=== PATIENT | female | born 1935 | race Caucasian/White ===

== ENCOUNTER 2016-06-11 16:45 | Emergency (ER) | payer MEDICARE, OTHER ==
[~2016-06-11 16:45] MED LIST: ALEN70TA39 PO; ASPI81TA85 PO; CALC1TAB9 PO; CITRTAB18 PO; HYDR1TAB97 PO; HYDR200T3 PO; LEVO25TA5 PO; MULT1TAB8 PO; [UNRECOGNIZED DRUG - CODE] OU
--- NOTE | 2016-06-11 18:49 | EDDOCDS ---
Physician Documentation [facility] Name: Chandrika Green Age: 80 yrs Sex: Female : 1935 Arrival Date: 06/11/2016 Time: 16:45 Bed TR7 Private MD: Lizzy Dodson Disposition: 06/11/16 18:36 Discharged to Home/Self Care. Impression: Scabies. - Condition is Stable. - Discharge Instructions: Scabies. - Prescriptions for Elimite 5 % Topical Cream - apply 1 application by TOPICAL route one time Wash after 12 hours.; 60 gram. Hydroxyzine HCl 25 mg Oral Tablet - take 1 tablet by ORAL route every 6 hours As needed; 30 tablet. - Medication Reconciliation, Local Pharmacy Hours form. - Follow up: Lizzy Dodson; When: 2 - 3 days; Reason: Recheck today's complaints, Continuance of care. - Problem is new. - Symptoms have improved. Historical: - Allergies: Synthroid (itching); - Home Meds: 1. hydrocortisone 1 % Topical lotn 2. hydroxyzine HCl 10 mg Oral tab four times a day As needed for itching 3. levothyroxine 25 mcg Oral tab 1 tab once daily 4. loratadine 10 mg Oral tab 1 tab once daily 5. Plaquenil 200 mg Oral tab 1 tab once daily - PMHx: Hypercholesterolemia; Hypothyroidism; Lupus; - PSHx: Cholecystectomy; - Social history: Smoking status: Patient/guardian denies using No barriers to communication noted, The patient speaks fluent Citizen Of [place]. - Family history: Not pertinent. - : The pt / caregiver states he / she is not on anticoagulants. Home medication list is obtained from the patient. - Exposure Risk Screening:: None identified. Vital Signs: 06/11 16:48 BP 142 / 57; Pulse 99; Resp 18 S; Temp 98.4(O); Pulse Ox 98% on R/A; Weight 70.76 kg / dd6 156 lbs (R); Height 5 ft. 0 in. (152.40 cm) (R); Pain 0/10; 16:48 Body Mass Index 30.47 (70.76 kg, 152.40 cm) dd6 Signatures: Mirian Roach RN RN Alice Vitale RN RN dls Kwaczala, Christopher, RPA-C RPA-Cck7 MAMTA
--- NOTE | 2016-06-11 18:49 | EDDOCDS ---
Nurse's Notes [facility] Name: Chandrika Green Age: 80 yrs Sex: Female : 1935 Arrival Date: 06/11/2016 Time: 16:45 Bed TR7 Private MD: Lizzy Dodson Diagnosis: Scabies Presentation: 06/11 16:54 Presenting complaint: Patient states: Pt presents for rash on entire body seen last dls month for the same PMD not open today. Onset: The symptoms/episode began/occurred 3 month(s) ago. This patient has not experienced a previous allergic reaction. Anaphylaxis evaluation, the patient reports or I have noted the following symptoms which indicate a significant risk of anaphylaxis: abdominal pain. Adult Sepsis Screening: The patient does not have new or worsening altered mentation. Patient's respiratory rate is less than 22. Systolic blood pressure is greater than 100. Patient has a qSOFA score of 0- Negative Sepsis Screen. Suicide/Homicide risk assessment- the patient denies having any suicidal and/or homicidal ideations and does not present with any other emotional, behavioral or mental health complaints. Status: Patient is not a readers' advisory service librarian or dependent. Transition of care: patient was not received from another setting of care. 16:54 Acuity: COLIN Level 4 dls 16:54 Method Of Arrival: Walkin/Carried/Asstd dls Triage Assessment: 16:57 General: Appears uncomfortable, well developed, Behavior is cooperative. Pain: Denies dls pain. Respiratory: No deficits noted. Historical: - Allergies: Synthroid (itching); - Home Meds: 1. hydrocortisone 1 % Topical lotn 2. hydroxyzine HCl 10 mg Oral tab four times a day As needed for itching 3. levothyroxine 25 mcg Oral tab 1 tab once daily 4. loratadine 10 mg Oral tab 1 tab once daily 5. Plaquenil 200 mg Oral tab 1 tab once daily - PMHx: Hypercholesterolemia; Hypothyroidism; Lupus; - PSHx: Cholecystectomy; - Social history: Smoking status: Patient/guardian denies using No barriers to communication noted, The patient speaks fluent Chinese. - Family history: Not pertinent. - : The pt / caregiver states he / she is not on anticoagulants. Home medication list is obtained from the patient. - Exposure Risk Screening:: None identified. Screenin:47 Screening information is obtained from prior medical records. Fall risk: No risks kcs identified. Assistance ADL's: requires no assistance with activities of daily living. Abuse/DV Screen: The patient / caregiver reports he/she is: not in a situation that causes fear, pain or injury. Nutritional screening: No deficits noted. Advance Directives: Currently, there is no health care proxy. There is no living will. home support is adequate. Assessment: 18:45 General: Appears comfortable, well developed, well nourished, well groomed, Behavior is kcs cooperative, pleasant. Pain: Denies pain. Awake, alert, oriented. Skin warm and dry. Moves all extremities. Respirations unlabored. No apparent distress. The patient / caregiver is instructed regarding the plan of care and ED course. Physical assessment to be completed by PA/EDMD. 18:47 Respiratory: Airway is patent Respiratory effort is even, unlabored, Respiratory kcs pattern is regular, symmetrical. Vital Signs: 16:48 BP 142 / 57; Pulse 99; Resp 18 S; Temp 98.4(O); Pulse Ox 98% on R/A; Weight 70.76 kg dd6 (R); Height 5 ft. 0 in. (152.40 cm) (R); Pain 0/10; 16:48 Body Mass Index 30.47 (70.76 kg, 152.40 cm) dd6 Vitals: 16:48 Log In Time: June 11, 2016 at 16:48. dd6 ED Course: 16:47 Patient visited by Nilson Silveira PCA. dd6 16:47 Patient moved to Waiting dd6 16:48 Lizzy Dodson is Private Physician. dd6 16:49 Patient visited by Nilson Silveira PCA. dd6 16:49 Patient moved to Pre RCE dd6 16:56 Triage Initiated dls 17:43 Patient moved to Triage 2 ms18 18:18 [facility] ck[facility] 18:18 Lorena Castano MD is Attending Physician. ck7 18:18 Patient visited by Deandre Puga RPA-C. ck7 18:35 Lizzy Dodson is Referral Physician. ck7 18:44 Patient moved to TR7 ct3 18:45 Patient has correct armband on for positive identification. kcs 18:47 No IV's were initiated during this patient's visit. No procedures done that require kcs assistance. Order Results: There are currently no results for this order. Outcome: 18:36 Discharge ordered by Provider. ck7 18:45 The following High Risk Discharge criteria are identified: None. Discharged to home kcs ambulatory. Condition: stable. Discharge instructions given to patient, Instructed on discharge instructions, follow up and referral plans. medication usage, no driving heavy equipment, no drinking with medication, Demonstrated understanding of instructions, medications, Pt was receptive of discharge instructions/ teaching. No special radiology studies were completed. 18:47 Discharge Assessment: Patient awake, alert and oriented x 3. No cognitive and/or kcs functional deficits noted. Patient verbalized understanding of disposition instructions. Patient awake and alert. patient administered narcotics - no. Property sent home with patient. 18:48 Patient left the ED. kcs Signatures: Mirian Roach, RN RN Alice Vitale RN RN Nilson Chavez, SOCIAL ORGANIZATION PROFESSOR SOCIAL ORGANIZATION PROFESSOR dd6 Leticia Means, SOCIAL ORGANIZATION PROFESSOR SOCIAL ORGANIZATION PROFESSOR ct3 Deandre Puga, RPA-C RPA-Cck7 Miya Montelongo RN RN ms18 MTDD
--- NOTE | 2016-06-13 20:34 | EDDOCDS ---
Physician Documentation [facility] Name: Chandrika Green Age: 80 yrs Sex: Female : 1935 Arrival Date: 06/11/2016 Time: 16:45 Bed TR7 Private MD: Lizzy Dodson Disposition: 06/11/16 18:36 Discharged to Home/Self Care. Impression: Scabies. - Condition is Stable. - Discharge Instructions: Scabies. - Prescriptions for Elimite 5 % Topical Cream - apply 1 application by TOPICAL route one time Wash after 12 hours.; 60 gram. Hydroxyzine HCl 25 mg Oral Tablet - take 1 tablet by ORAL route every 6 hours As needed; 30 tablet. - Medication Reconciliation, Local Pharmacy Hours form. - Follow up: Lizzy Dodson; When: 2 - 3 days; Reason: Recheck today's complaints, Continuance of care. - Problem is new. - Symptoms have improved. Historical: - Allergies: Synthroid (itching); - Home Meds: 1. hydrocortisone 1 % Topical lotn 2. hydroxyzine HCl 10 mg Oral tab four times a day As needed for itching 3. levothyroxine 25 mcg Oral tab 1 tab once daily 4. loratadine 10 mg Oral tab 1 tab once daily 5. Plaquenil 200 mg Oral tab 1 tab once daily - PMHx: Hypercholesterolemia; Hypothyroidism; Lupus; - PSHx: Cholecystectomy; - Social history: Smoking status: Patient/guardian denies using No barriers to communication noted, The patient speaks fluent Macanese. - Family history: Not pertinent. - : The pt / caregiver states he / she is not on anticoagulants. Home medication list is obtained from the patient. - Exposure Risk Screening:: None identified. Vital Signs: 06/11 16:48 BP 142 / 57; Pulse 99; Resp 18 S; Temp 98.4(O); Pulse Ox 98% on R/A; Weight 70.76 kg / dd6 156 lbs (R); Height 5 ft. 0 in. (152.40 cm) (R); Pain 0/10; 16:48 Body Mass Index 30.47 (70.76 kg, 152.40 cm) dd6 MDM: 20:25 [facility] Payment Agreement was scanned into [employer] and attached to record. b 20:25 Financial registration complete. gjb 06/12 05:58 T-Sheet-- Draft Copy was scanned into [employer] and attached to record. timbo Signatures: Mirian Roach RN RN kcs Scott, Debra, RN RN dls Kwaczala, Christopher, RPA-C RPA-Cck7 Arel, [place] Wallace The chart was reviewed and I authenticate all verbal orders and agree with the evaluation and treatment provided.Attachments: 06/11 20:25 [facility] Payment Agreement gjb 06/12 05:58 T-Sheet-- Draft Copy [email or web address] Chart Complete MTDD
--- NOTE | 2016-06-13 20:34 | EDDOCDS ---
Nurse's Notes [facility] Name: Chandrika Green Age: 80 yrs Sex: Female : 1935 Arrival Date: 06/11/2016 Time: 16:45 Bed TR7 Private MD: Lizzy Dodson Diagnosis: Scabies Presentation: 06/11 16:54 Presenting complaint: Patient states: Pt presents for rash on entire body seen last dls month for the same PMD not open today. Onset: The symptoms/episode began/occurred 3 month(s) ago. This patient has not experienced a previous allergic reaction. Anaphylaxis evaluation, the patient reports or I have noted the following symptoms which indicate a significant risk of anaphylaxis: abdominal pain. Adult Sepsis Screening: The patient does not have new or worsening altered mentation. Patient's respiratory rate is less than 22. Systolic blood pressure is greater than 100. Patient has a qSOFA score of 0- Negative Sepsis Screen. Suicide/Homicide risk assessment- the patient denies having any suicidal and/or homicidal ideations and does not present with any other emotional, behavioral or mental health complaints. Status: Patient is not a hvac/r service technician or dependent. Transition of care: patient was not received from another setting of care. 16:54 Acuity: COLIN Level 4 dls 16:54 Method Of Arrival: Walkin/Carried/Asstd dls Triage Assessment: 16:57 General: Appears uncomfortable, well developed, Behavior is cooperative. Pain: Denies dls pain. Respiratory: No deficits noted. Historical: - Allergies: Synthroid (itching); - Home Meds: 1. hydrocortisone 1 % Topical lotn 2. hydroxyzine HCl 10 mg Oral tab four times a day As needed for itching 3. levothyroxine 25 mcg Oral tab 1 tab once daily 4. loratadine 10 mg Oral tab 1 tab once daily 5. Plaquenil 200 mg Oral tab 1 tab once daily - PMHx: Hypercholesterolemia; Hypothyroidism; Lupus; - PSHx: Cholecystectomy; - Social history: Smoking status: Patient/guardian denies using No barriers to communication noted, The patient speaks fluent Korean. - Family history: Not pertinent. - : The pt / caregiver states he / she is not on anticoagulants. Home medication list is obtained from the patient. - Exposure Risk Screening:: None identified. Screenin:47 Screening information is obtained from prior medical records. Fall risk: No risks kcs identified. Assistance ADL's: requires no assistance with activities of daily living. Abuse/DV Screen: The patient / caregiver reports he/she is: not in a situation that causes fear, pain or injury. Nutritional screening: No deficits noted. Advance Directives: Currently, there is no health care proxy. There is no living will. home support is adequate. Assessment: 18:45 General: Appears comfortable, well developed, well nourished, well groomed, Behavior is kcs cooperative, pleasant. Pain: Denies pain. Awake, alert, oriented. Skin warm and dry. Moves all extremities. Respirations unlabored. No apparent distress. The patient / caregiver is instructed regarding the plan of care and ED course. Physical assessment to be completed by PA/EDMD. 18:47 Respiratory: Airway is patent Respiratory effort is even, unlabored, Respiratory kcs pattern is regular, symmetrical. Vital Signs: 16:48 BP 142 / 57; Pulse 99; Resp 18 S; Temp 98.4(O); Pulse Ox 98% on R/A; Weight 70.76 kg dd6 (R); Height 5 ft. 0 in. (152.40 cm) (R); Pain 0/10; 16:48 Body Mass Index 30.47 (70.76 kg, 152.40 cm) dd6 Vitals: 16:48 Log In Time: June 11, 2016 at 16:48. dd6 ED Course: 16:47 Patient visited by Nilson Silveira PCA. dd6 16:47 Patient moved to Waiting dd6 16:48 Lizzy Dodson is Private Physician. dd6 16:49 Patient visited by Nilson Silveira PCA. dd6 16:49 Patient moved to Pre RCE dd6 16:56 Triage Initiated dls 17:43 Patient moved to Triage 2 ms18 18:18 [facility] ck[facility] 18:18 Lorena Castano MD is Attending Physician. ck7 18:18 Patient visited by Deandre Puga RPA-C. ck7 18:35 Lizzy Dodson is Referral Physician. ck7 18:44 Patient moved to TR7 ct3 18:45 Patient has correct armband on for positive identification. kcs 18:47 No IV's were initiated during this patient's visit. No procedures done that require kcs assistance. 20:25 [facility] Payment Agreement was scanned into [employer] and attached to record. judit 06/12 05:58 T-Sheet-- Draft Copy was scanned into [employer] and attached to record. timbo Order Results: There are currently no results for this order. Outcome: 06/11 18:36 Discharge ordered by Provider. ck7 18:45 The following High Risk Discharge criteria are identified: None. Discharged to home kcs ambulatory. Condition: stable. Discharge instructions given to patient, Instructed on discharge instructions, follow up and referral plans. medication usage, no driving heavy equipment, no drinking with medication, Demonstrated understanding of instructions, medications, Pt was receptive of discharge instructions/ teaching. No special radiology studies were completed. 18:47 Discharge Assessment: Patient awake, alert and oriented x 3. No cognitive and/or kcs functional deficits noted. Patient verbalized understanding of disposition instructions. Patient awake and alert. patient administered narcotics - no. Property sent home with patient. 18:48 Patient left the ED. kcs Signatures: Mirian Roach, RN RN Alice Vitale RN RN Nilson Chavez, WOOD BOX MAKER WOOD BOX MAKER dd6 Leticia Means, WOOD BOX MAKER WOOD BOX MAKER ct3 Deandre Puga, RPA-C RPA-Cck7 Miya Montelongo,GABRIEL RN ms18 Zafarl, Patricia Eddy, [place] Chart Complete MTDD
--- NOTE | 2016-06-13 20:34 | EDDOCDS ---
Physician Documentation [facility] Name: Chandrika Green Age: 80 yrs Sex: Female : 1935 Arrival Date: 06/11/2016 Time: 16:45 Bed TR7 Private MD: Lizzy Dodson Disposition: 06/11/16 18:36 Discharged to Home/Self Care. Impression: Scabies. - Condition is Stable. - Discharge Instructions: Scabies. - Prescriptions for Elimite 5 % Topical Cream - apply 1 application by TOPICAL route one time Wash after 12 hours.; 60 gram. Hydroxyzine HCl 25 mg Oral Tablet - take 1 tablet by ORAL route every 6 hours As needed; 30 tablet. - Medication Reconciliation, Local Pharmacy Hours form. - Follow up: Lizzy Dodson; When: 2 - 3 days; Reason: Recheck today's complaints, Continuance of care. - Problem is new. - Symptoms have improved. Historical: - Allergies: Synthroid (itching); - Home Meds: 1. hydrocortisone 1 % Topical lotn 2. hydroxyzine HCl 10 mg Oral tab four times a day As needed for itching 3. levothyroxine 25 mcg Oral tab 1 tab once daily 4. loratadine 10 mg Oral tab 1 tab once daily 5. Plaquenil 200 mg Oral tab 1 tab once daily - PMHx: Hypercholesterolemia; Hypothyroidism; Lupus; - PSHx: Cholecystectomy; - Social history: Smoking status: Patient/guardian denies using No barriers to communication noted, The patient speaks fluent Taiwanese. - Family history: Not pertinent. - : The pt / caregiver states he / she is not on anticoagulants. Home medication list is obtained from the patient. - Exposure Risk Screening:: None identified. Vital Signs: 06/11 16:48 BP 142 / 57; Pulse 99; Resp 18 S; Temp 98.4(O); Pulse Ox 98% on R/A; Weight 70.76 kg / dd6 156 lbs (R); Height 5 ft. 0 in. (152.40 cm) (R); Pain 0/10; 16:48 Body Mass Index 30.47 (70.76 kg, 152.40 cm) dd6 MDM: 20:25 [facility] Payment Agreement was scanned into [employer] and attached to record. b 20:25 Financial registration complete. gjb 06/12 05:58 T-Sheet-- Draft Copy was scanned into [employer] and attached to record. timbo Signatures: Mirian Roach RN RN kcs Scott, Debra, RN RN dls Kwaczala, Christopher, RPA-C RPA-Cck7 Arel, [place] Wallace The chart was reviewed and I authenticate all verbal orders and agree with the evaluation and treatment provided.Attachments: 06/11 20:25 [facility] [place] [facility] Payment Agreement gjb 06/12 05:58 T-Sheet-- Draft Copy [email or web address] Chart Complete MTDD
== END 2016-06-11 18:48 | disposition home or self-care (01) ==
LOC: M ED 16:45
DX: B86 Scabies (principal); M32.10 Systemic lupus erythematosus, organ or system involvement unspecified; E03.9 Hypothyroidism, unspecified; E78.00 Pure hypercholesterolemia, unspecified; Z90.49 Acquired absence of other specified parts of digestive tract; Z79.899 Other long term (current) drug therapy; Z88.8 Allergy status to other drugs, medicaments and biological substances

== ENCOUNTER → 2016-06-28 | Outpatient (CLI) | payer MEDICARE, OTHER ==
[~2016-06-28] MED LIST changes: +HYDR-3713 PO; -HYDR1TAB97 PO
[2016-06-28 11:33] LABS: BASO % 0.7 % (0.0-1.0); EOS # 0.4 K/mm3 (0.0-0.50); EOS % 6.2 % (0.0-3.0); LARGE UNSTAINED CELL # 0.1 K/mm3 (0.0-0.4); LARGE UNSTAINED CELL % 1.9 % (0.0-4.0); LYMPH # 1.3 K/mm3 (1.5-4.5); LYMPH % 18.6 % (24.0-44.0); MEAN CORPUSCULAR HEMOGLOBIN 29.6 pg (27.0-33.0); MEAN CORPUSCULAR HGB CONC 31.2 g/dl (32.0-36.5); MEAN CORPUSCULAR VOLUME 94.8 fl (80.0-96.0); MONO # 0.5 K/mm3 (0.0-0.8); MONO % 7.7 % (0.0-5.0); NEUTROPHILS # 4.1 K/mm3 (1.8-7.7); NEUTROPHILS % 64.9 % (36.0-66.0); PLATELET COUNT, AUTOMATED 234 k/mm3 (150-450); RED CELL DISTRIBUTION WIDTH 14.5 % (11.5-14.5); WHITE BLOOD COUNT 6.3 K/mm3 (4.0-10.0)
[2016-06-28 11:38] LABS: ERYTHROCYTE SEDIMENTATION RATE 39 mm/hr (0-30)
[2016-06-28 12:14] LABS: ALBUMIN 3.2 GM/DL (3.2-5.2); ALBUMIN/GLOBULIN RATIO 0.91 (1.00-1.93); ALKALINE PHOSPHATASE 82 U/L (45-117); ALT/SGPT 36 U/L (12-78); ANION GAP 11 MEQ/L (8-16); AST/SGOT 29 U/L (15-37); BILIRUBIN,TOTAL 0.3 MG/DL (0.2-1.0); BLOOD UREA NITROGEN 18 MG/DL (7-18); CALCIUM LEVEL 8.8 MG/DL (8.8-10.2); CARBON DIOXIDE LEVEL 25 MEQ/L (21-32); CHLORIDE LEVEL 108 MEQ/L (98-107); COMPLEMENT C3 142 MG/DL (90-180); COMPLEMENT C4 21.5 MG/DL (10-40); CREATININE FOR GFR 0.77 MG/DL (0.55-1.02); GAMMA GLUTAMYLTRANSPEPTIDASE 46 U/L (5-55); GLOMERULAR FILTRATION RATE > 60.0 (>39); GLUCOSE, FASTING 79 MG/DL (83-110); POTASSIUM SERUM 4.4 MEQ/L (3.5-5.1); SODIUM LEVEL 144 MEQ/L (136-145); TOTAL PROTEIN 6.7 GM/DL (6.4-8.2)
== END ==
LOC: M LAB 10:24
PROVIDERS: ATTEND Internal Medicine Rheumatology
DX: M32.19 Other organ or system involvement in systemic lupus erythematosus (principal); Z79.899 Other long term (current) drug therapy

== ENCOUNTER → 2016-07-24 | Outpatient (REF) | payer MEDICARE, OTHER | LOC: M LAB REF 13:08 | PROVIDERS: ATTEND Internal Medicine | DX: R41.3 Other amnesia (principal) ==

== ENCOUNTER 2016-08-22 11:31 | Emergency (ER) | payer MEDICARE, OTHER ==
[~2016-08-22] VITALS: Ht 149.9 cm; Wt 72.1 kg
[2016-08-22 11:41] VITALS: BP 152/73
[2016-08-22] MEDS ORDERED: KEFL500C7 PO (12:05)
== END 2016-08-22 12:15 | disposition home or self-care (01) ==
LOC: M ED 12:14
DX: R21 Rash and other nonspecific skin eruption (principal); E78.00 Pure hypercholesterolemia, unspecified; E03.9 Hypothyroidism, unspecified; M19.90 Unspecified osteoarthritis, unspecified site; Z79.899 Other long term (current) drug therapy; Z87.891 Personal history of nicotine dependence

== ENCOUNTER → 2016-10-19 | Outpatient (CLI) | payer MEDICARE, OTHER ==
[~2016-10-19] MED LIST changes: +KEFL500C7 PO
== END ==
LOC: M SMT 12:08
PROVIDERS: ATTEND Allergy & Immunology Allergy
DX: L20.89 Other atopic dermatitis (principal)

== ENCOUNTER → 2016-10-31 | Outpatient (REF) | payer MEDICARE, OTHER | LOC: M SFHCPLAZ 16:32 | PROVIDERS: ATTEND Family Medicine | DX: K13.0 Diseases of lips (principal); E04.9 Nontoxic goiter, unspecified; R21 Rash and other nonspecific skin eruption ==

== ENCOUNTER → 2016-11-01 | Outpatient (REF) | payer MEDICARE, OTHER ==
[2016-11-01 14:48] LABS: FOLATE 7.1 NG/ML
[2016-11-01 15:11] LABS: FREE T4 1.14 NG/DL (0.76-1.46)
== END ==
LOC: M SFHCPLAZ 11:57
PROVIDERS: ATTEND Family Medicine
DX: K13.0 Diseases of lips (principal); E04.9 Nontoxic goiter, unspecified; R21 Rash and other nonspecific skin eruption

== ENCOUNTER → 2016-11-07 | Outpatient (REF) | payer MEDICARE, OTHER ==
[2016-11-07 12:14] LABS: BASO % 0.7 % (0.0-1.0); EOS # 0.6 K/mm3 (0.0-0.50); EOS % 14.6 % (0.0-3.0); LARGE UNSTAINED CELL # 0.2 K/mm3 (0.0-0.4); LYMPH # 0.9 K/mm3 (1.5-4.5); LYMPH % 22.2 % (24.0-44.0); MEAN CORPUSCULAR HEMOGLOBIN 30.5 pg (27.0-33.0); MEAN CORPUSCULAR HGB CONC 32.5 g/dl (32.0-36.5); MEAN CORPUSCULAR VOLUME 93.8 fl (80.0-96.0); MONO # 0.4 K/mm3 (0.0-0.8); MONO % 10.3 % (0.0-5.0); NEUTROPHILS % 48.2 % (36.0-66.0); PLATELET COUNT, AUTOMATED 252 k/mm3 (150-450); WHITE BLOOD COUNT 4.2 K/mm3 (4.0-10.0)
[2016-11-07 13:05] LABS: ERYTHROCYTE SEDIMENTATION RATE 52 mm/hr (0-30)
[2016-11-07 13:08] LABS: THYROID PEROXIDASE ANTIBODY < 28.0 U/ML (<60.0)
== END ==
LOC: M SFHCPLAZ 09:03
PROVIDERS: ATTEND Family Medicine
DX: L20.9 Atopic dermatitis, unspecified (principal); M32.9 Systemic lupus erythematosus, unspecified; E04.9 Nontoxic goiter, unspecified
CPT/HCPCS: 36415; 84252; 84443; 85025; 85652; 86140; 86376; 86800; G0463

== ENCOUNTER → 2016-12-26 | Outpatient (CLI) | payer MEDICARE, OTHER ==
[~2016-12-26] MED LIST changes: +KEFL500C17 PO; -KEFL500C7 PO
--- NOTE | 2016-12-27 14:28 | REP ---
Thyroid uptake and scintigraphy: History: Goiter. Technique: 352 microcuries of I-123 sodium iodide is ingested and 2 and 24 uptake values are acquired. Functional thyroid images are acquired as well. Findings: The thyroid uptake values are low. At 2 hours the patient's uptake value is 4.4% (6-12%). At 24 hours, the patient's as thyroid uptake value is 14.1% (25-35%). Functional images show no cold or warm lesion. Symmetric uptake is seen. A thin pyramidal lobe appears to be present. Impression: Decreased uptake. No cold or warm lesion seen. Signed by Joe Domingo MD 12/27/2016 04:41 P
== END ==
LOC: M RAD 08:36
PROVIDERS: ATTEND Family Medicine
DX: E04.1 Nontoxic single thyroid nodule (principal)
CPT/HCPCS: 78012; A9516

== ENCOUNTER → 2017-01-14 | Outpatient (REF) | payer MEDICARE, OTHER ==
[2017-01-14 17:29] LABS: REASON FOR REVIEW COMPREHENSIVE REVIEW
[2017-01-14 17:56] LABS: MEAN CORPUSCULAR HEMOGLOBIN 30.4 pg (27.0-33.0); MEAN CORPUSCULAR HGB CONC 32.9 g/dl (32.0-36.5); MEAN CORPUSCULAR VOLUME 92.5 fl (80.0-96.0); RED CELL DISTRIBUTION WIDTH 13.4 % (11.5-14.5); RETIC HEMOGLOBIN CONTENT CHr 31.1 PG (24-36); RETICULOCYTE ABSOLUTE ADVIA212 51 x10(9)/L (17-77); WHITE BLOOD COUNT 3.2 K/mm3 (4.0-10.0)
[2017-01-14 18:20] LABS: ANION GAP 11 MEQ/L (8-16); BLOOD UREA NITROGEN 10 MG/DL (7-18); CALCIUM LEVEL 8.3 MG/DL (8.8-10.2); CARBON DIOXIDE LEVEL 23 MEQ/L (21-32); CHLORIDE LEVEL 106 MEQ/L (98-107); CREATININE FOR GFR 0.69 MG/DL (0.55-1.02); FERRITIN 14 NG/ML (8-252); FREE T4 1.06 NG/DL (0.76-1.46); GLOMERULAR FILTRATION RATE > 60.0 (>32); GLUCOSE, FASTING 77 MG/DL (83-110); POTASSIUM SERUM 4.1 MEQ/L (3.5-5.1); SODIUM LEVEL 140 MEQ/L (136-145)
[2017-01-14 20:59] LABS: BASOPHILS 1 % (0-4); EOSINOPHILS 2 % (0-5)
== END ==
LOC: M SFHCPLAZ 14:04
PROVIDERS: ATTEND Family Medicine
DX: D64.9 Anemia, unspecified (principal); E03.9 Hypothyroidism, unspecified; Z87.39 Personal history of other diseases of the musculoskeletal system and connective tissue; L30.9 Dermatitis, unspecified; R79.89 Other specified abnormal findings of blood chemistry; Z79.899 Other long term (current) drug therapy
CPT/HCPCS: 80048; 82270; 82728; 84439; 84443; 84466; 85007; 85027; 85046; G0463

== ENCOUNTER → 2017-01-15 | Outpatient (REF) | payer MEDICARE, OTHER | LOC: M SFHCPLAZ 01-14 11:22 | PROVIDERS: ATTEND Family Medicine | DX: L30.9 Dermatitis, unspecified (principal); R79.89 Other specified abnormal findings of blood chemistry; D64.9 Anemia, unspecified; E03.9 Hypothyroidism, unspecified; Z87.39 Personal history of other diseases of the musculoskeletal system and connective tissue ==

== ENCOUNTER → 2017-03-08 | Outpatient (CLI) | payer MEDICARE, OTHER | LOC: M LAB 11:12 | PROVIDERS: ATTEND Nurse Practitioner Family | DX: R13.10 Dysphagia, unspecified (principal) ==

== ENCOUNTER → 2017-03-12 | Outpatient (CLI) | payer MEDICARE, OTHER ==
--- NOTE | 2017-03-12 11:01 | REP ---
Soft tissue neck three views: There is scoliosis of the cervical spine convex right of the upper thoracic spine convex left. The prevertebral soft tissues are unremarkable. The epiglottis is not hypertrophied. The sub glottic trachea is suboptimally demonstrated on the AP view. There is cervical spine degenerative disc disease at C 4-5 and C5-6. There are calcifications in the thyroid, cricoid cartilages. No definite radiopaque foreign bodies are identified. If foreign body is clinical concern consider CT or MRI followup. Signed by Gregory Schuster MD 03/12/2017 10:53 A
== END ==
LOC: M RAD 09:53
PROVIDERS: ATTEND Nurse Practitioner Family
DX: R13.10 Dysphagia, unspecified (principal)

== ENCOUNTER → 2017-06-05 | Outpatient (REF) | payer MEDICARE, OTHER ==
[2017-06-05 13:26] LABS: BASO % 0.4 % (0.0-1.0); EOS # 0.1 10^3/uL (0.0-0.50); IMMATURE GRANULOCYTE % 0.2 % (0-0); LYMPH # 0.9 10^3/uL (1.5-4.5); LYMPH % 18.3 % (24.0-44.0); MEAN CORPUSCULAR HEMOGLOBIN 30.3 pg (27.0-33.0); MEAN CORPUSCULAR HGB CONC 32.1 g/dl (32.0-36.5); MEAN CORPUSCULAR VOLUME 94.3 fl (80.0-96.0); MONO # 0.6 10^3/uL (0.0-0.8); MONO % 11.4 % (0.0-5.0); NEUTROPHILS # 3.3 10^3/uL (1.8-7.7); NEUTROPHILS % 68.7 % (36.0-66.0); PLATELET COUNT, AUTOMATED 254 10^3/uL (150-450); RED CELL DISTRIBUTION WIDTH 13.2 % (11.5-14.5); WHITE BLOOD COUNT 4.8 10^3/uL (4.0-10.0)
[2017-06-05 13:47] LABS: FREE T4 1.21 NG/DL (0.76-1.46)
== END ==
LOC: M SFHCPLAZ 10:34
DX: D70.9 Neutropenia, unspecified (principal); E03.9 Hypothyroidism, unspecified; F32.9 Major depressive disorder, single episode, unspecified
CPT/HCPCS: 84439

== ENCOUNTER 2019-01-11 20:37 | Emergency (ER) | payer MEDICARE, OTHER ==
[~2019-01-11] VITALS: Ht 162.6 cm; Wt 70.0 kg
[~2019-01-11 20:37] MED LIST changes: -ALEN70TA39 PO; +ALEN70TA74 PO
[2019-01-11] MEDS ORDERED: DONE10TA90 (20:45)
[2019-01-11] MEDS ORDERED: ACETAMINOPH W/CODEINE #3 TAB UD PO ONE (21:45)
[2019-01-11] MEDS ORDERED: TYLETAB14 PO (21:56)
[2019-01-11 22:03] VITALS: BP 156/70
--- NOTE | 2019-01-12 00:45 | REP ---
Clinical: Trauma. Fall. Technique: AP, lateral, bilateral oblique views of the left wrist. Findings: Comminuted intra-articular fracture involving the distal radial metaphysis and nondisplaced ulnar styloid fracture. Overlying soft tissue swelling. Chronic age-related changes to the wrist noted. Impression: Comminuted intra-articular fracture of the distal radius. Nondisplaced ulnar styloid fracture. Electronically Signed by Onel Mcgee MD 01/12/2019 12:37 A
== END 2019-01-11 22:05 | disposition home or self-care (01) ==
LOC: M ED 20:37
DX: S52.572A Other intraarticular fracture of lower end of left radius, initial encounter for closed fracture (principal); S52.615A Nondisplaced fracture of left ulna styloid process, initial encounter for closed fracture; W01.0XXA Fall on same level from slipping, tripping and stumbling without subsequent striking against object, initial encounter; Y92.018 Other place in single-family (private) house as the place of occurrence of the external cause; E78.5 Hyperlipidemia, unspecified; Z79.899 Other long term (current) drug therapy; Z87.891 Personal history of nicotine dependence

== ENCOUNTER 2019-03-01 15:35 | Inpatient (IN) | payer OTHER, MEDICARE ==
[~2019-03-01] VITALS: Ht 152.4 cm; Wt 64.0 kg
[~2019-03-01 15:35] MED LIST changes: +DONE10TA90 PO; +TYLETAB14 PO
[2019-03-01] MEDS ORDERED: TRAZ-252 PO (15:48)
[2019-03-01 18:13] LABS: HEMATOCRIT 36.2 % (36.0-47.0); HEMOGLOBIN 11.9 g/dl (12.0-15.5); MEAN CORPUSCULAR HEMOGLOBIN 31.2 pg (27.0-33.0); MEAN CORPUSCULAR HGB CONC 32.9 g/dl (32.0-36.5); PLATELET COUNT, AUTOMATED 216 10^3/uL (150-450); RED BLOOD COUNT 3.81 10^6/uL (4.00-5.40); WHITE BLOOD COUNT 6.8 10^3/uL (4.0-10.0)
[2019-03-01] MEDS ORDERED: VITA100018 PO (18:18)
[2019-03-01 18:33] LABS: BLOOD UREA NITROGEN 9 MG/DL (7-18); CALCIUM LEVEL 8.6 MG/DL (8.8-10.2); CARBON DIOXIDE LEVEL 25 MEQ/L (21-32); CHLORIDE LEVEL 109 MEQ/L (98-107); GLOMERULAR FILTRATION RATE > 60.0 (>32); GLUCOSE, FASTING 87 MG/DL (70-100); SODIUM LEVEL 142 MEQ/L (136-145)
--- NOTE | 2019-03-01 18:40 | ECGEPIP ---
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
[2019-03-01] MEDS ORDERED: ACETAMINOPHEN TAB 650MG DOSE (2X325MG) PO PRN (19:15)
[2019-03-01] MEDS ORDERED: HEPARIN SOD (PORCINE) 5000 UNITS/ML VIAL SC SCH (21:00)
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
[2019-03-01 22:10] VITALS: BP 173/86
[2019-03-01] MEDS: DOCUSATE SODIUM 100 MG CAP PO SCH (23:02)
[2019-03-01 23:48] VITALS: BP 138/69
[2019-03-02] MEDS: ACETAMINOPH W/CODEINE #3 TAB UD PO PRN ×2 (01:43→09:18)
[2019-03-02 04:46] LABS: APPEARANCE, URINE HAZY (CLEAR); BACTERIA, URINE AUTO 3+ (NEGATIVE); BILIRUBIN, URINE AUTO NEGATIVE (NEGATIVE); BLOOD, URINE BLOOD NEGATIVE (NEGATIVE); COLOR, URINE YELLOW (YELLOW); GLUCOSE, URINE (UA) AUTO NEGATIVE (NEGATIVE); KETONE, URINE AUTO NEGATIVE (NEGATIVE); LEUKOCYTE ESTERASE, URINE AUTO TRACE (NEGATIVE); MUCUS, URINE SMALL (NEGATIVE); NITRITE, URINE AUTO POSITIVE (NEGATIVE); PROTEIN, URINE AUTO NEGATIVE (NEGATIVE); RBC, URINE AUTO 1 /HPF (0-3); SPECIFIC GRAVITY URINE AUTO 1.017 (1.002-1.035); SQUAMOUS EPITHELIAL CELL UR AU 1 /HPF (0-6); TRANSITIONAL EPITHELIAL AUTO 1 /HPF; UROBILINOGEN, URINE AUTO 0.2 mg/dL (0.0-2.0); WBC, URINE AUTO 30 /HPF (0-3)
[2019-03-02 05:18] LABS: AMPHETAMINES LEVEL URINE NEGATIVE (NEGATIVE); BARBITURATES URINE NEGATIVE (NEGATIVE); BENZODIAZEPINES URINE NEGATIVE (NEGATIVE); CANNABINOIDS URINE NEGATIVE (NEGATIVE); COCAINE METABOLITE URINE NEGATIVE (NEGATIVE); METHADONE URINE NEGATIVE (NEGATIVE); OPIATES URINE POSITIVE (NEGATIVE); PHENCYCLIDINE URINE NEGATIVE (NEGATIVE)
[2019-03-02 06:00] VITALS: BP 144/68
[2019-03-02 06:17] LABS: HEMATOCRIT 35.8 % (36.0-47.0); HEMOGLOBIN 11.6 g/dl (12.0-15.5); MEAN CORPUSCULAR HEMOGLOBIN 30.9 pg (27.0-33.0); MEAN CORPUSCULAR HGB CONC 32.4 g/dl (32.0-36.5); MEAN CORPUSCULAR VOLUME 95.2 fl (80.0-96.0); PLATELET COUNT, AUTOMATED 188 10^3/uL (150-450); RED BLOOD COUNT 3.76 10^6/uL (4.00-5.40); WHITE BLOOD COUNT 4.5 10^3/uL (4.0-10.0)
[2019-03-02 06:37] LABS: BLOOD UREA NITROGEN 11 MG/DL (7-18); CALCIUM LEVEL 8.3 MG/DL (8.8-10.2); CARBON DIOXIDE LEVEL 26 MEQ/L (21-32); CHLORIDE LEVEL 110 MEQ/L (98-107); GLOMERULAR FILTRATION RATE > 60.0 (>32); GLUCOSE, FASTING 93 MG/DL (70-100); POTASSIUM SERUM 3.6 MEQ/L (3.5-5.1); SODIUM LEVEL 143 MEQ/L (136-145)
--- NOTE | 2019-03-02 07:37 | REP ---
CT BRAIN WITHOUT CONTRAST: CT brain performed without IV contrast. There is moderate atrophy. There is no midline shift or mass effect. There are mild periventricular small vessel ischemic changes in the white matter. There is no acute hemorrhage. There is no extra-axial fluid collection. There is no skull fracture. There are mild vascular calcifications of the carotid siphons. IMPRESSION: Chronic changes without evidence of acute intracranial hemorrhage or skull fracture. Electronically Signed by Gregory Calderon MD 03/03/2019 09:46 A
--- NOTE | 2019-03-02 07:38 | REP ---
CT CERVICAL SPINE: CT cervical spine was performed in the axial planes. Sagittal and coronal reconstruction images are performed. There is no compression fracture. There is no prevertebral soft-tissue swelling. There is mild retrolisthesis of C5 on C6 which is unchanged since prior lateral neck radiographs 03/12/2017. This appears to be due to posterior facet arthropathy. There is mild diffuse spurring. There is mild disc space narrowing and subchondral sclerosis at C4-5 with a more moderate degree of disc space narrowing at C5-6. There is diffuse sclerosis and spurring at the posterior facet joints. No abnormal density is seen in the spinal canal. IMPRESSION: Degenerative changes without fracture or dislocation. Electronically Signed by Gregory Calderon MD 03/03/2019 09:47 A
--- NOTE | 2019-03-02 07:38 | REP ---
LEFT ANKLE, FOUR VIEWS: Four views of the left ankle performed. There is mildly displaced fracture of the medial malleolus extending into the tibiotalar joint. The distal fibula appears intact. No other fracture or dislocation is seen. Electronically Signed by Gregory Calderon MD 03/03/2019 09:47 A
--- NOTE | 2019-03-02 07:43 | REP ---
LEFT KNEE, FIVE VIEWS: There is no evidence of an acute fracture, dislocation or intrinsic bone disease. IMPRESSION: No fracture or dislocation. Electronically Signed by Gregory Calderon MD 03/03/2019 09:48 A
[2019-03-02] MEDS: DOCUSATE SODIUM 100 MG CAP PO SCH ×2 (09:18→21:41)
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
[2019-03-02 14:00] VITALS: BP 122/61
[2019-03-02] MEDS ORDERED: MIDAZOLAM INJ 2 MG/2 ML VIAL (J2250) As Ordered ONE (17:52)
[2019-03-02] MEDS ORDERED: fentaNYL 100 MCG/2 ML INJECTION (J3010) As Ordered ONE (17:52)
[2019-03-02] MEDS ORDERED: ROCURONIUM BROMIDE 50 MG/5 ML VIAL As Ordered ONE (17:56)
[2019-03-02] MEDS ORDERED: PROPOFOL 200 MG/20 ML VIAL As Ordered ONE ×2 (17:56→19:48)
[2019-03-02] MEDS ORDERED: dexameTHASONE 4 MG/ML 1ML VIAL (J1100) As Ordered ONE (17:57)
[2019-03-02] MEDS ORDERED: LIDOCAINE 2% INJ 100 MG/5 ML SDV (FOR ANES.) As Ordered ONE (17:57)
[2019-03-02] MEDS ORDERED: ONDANSETRON 4MG/2ML VIAL (J2405) As Ordered ONE (17:57)
[2019-03-02] MEDS ORDERED: BUPIVACAINE HCL 0.5% 30 ML VIAL As Ordered ONE (18:45)
[2019-03-02] MEDS ORDERED: ACETAMINOPHEN 1000MG 100ML IV BTL (OFIRMEV) (J0131 PER 10MG) As Ordered ONE (19:19)
[2019-03-02] MEDS ORDERED: ePHEDrine SULFATE 25 MG/5 ML(5MG/ML) SYRINGE As Ordered ONE (19:23)
[2019-03-02] MEDS ORDERED: ONDANSETRON 4MG/2ML VIAL (J2405) IV PRN (20:30)
[2019-03-02] MEDS ORDERED: PERCOCET 5MG/325MG TAB PO PRN (20:30)
[2019-03-02] MEDS ORDERED: fentaNYL 100 MCG/2 ML INJECTION (J3010) IV PRN (20:30)
[2019-03-02] MEDS ORDERED: LR 1,000 ML IV SCH ×2 (20:30→20:45)
[2019-03-02] MEDS ORDERED: traMADol 50 MG TAB PO PRN (20:45)
[2019-03-02 21:25] VITALS: BP 143/71
[2019-03-02 21:55] VITALS: BP 116/56
[2019-03-02 22:25] VITALS: BP 117/56
[2019-03-02 23:25] VITALS: BP 112/55
[2019-03-03] VITALS (7 sets, daily range): BP systolic 109–126; BP diastolic 53–70
[2019-03-03] MEDS: LEVOTHYROXINE 25MCG TABLET (0.025MG) PO SCH (05:13)
[2019-03-03] MEDS: ACETAMINOPHEN TAB 650MG DOSE (2X325MG) PO PRN ×2 (05:13→20:48)
--- NOTE | 2019-03-03 07:26 | REP ---
LEFT ANKLE C-ARM: 03/02/2019. CLINICAL HISTORY: Pain, ankle fracture for ORIF. COMPARISON: Acute fracture series 03/01/2019. FINDINGS: Eight images of C-arm fluoroscopy provided to Dr. Silvestre of the orthopedic division are reviewed. K-wires in the medial malleolus reducing the fracture followed by lag screws with essentially anatomic alignment of the medial malleolar displaced fracture. Mortise joint symmetric and preserved. No other fracture or focal lesion. Fluoroscopy time: 1 minute 6 seconds. Electronically Signed by Ascencion Phipps MD 03/03/2019 08:20 A
[2019-03-03] MEDS: CYANOCOBALAMIN 500 MCG TAB PO SCH (09:10)
[2019-03-03] MEDS: ENOXAPARIN 40 MG/0.4 ML SYRINGE (J1650) SC SCH (09:10)
[2019-03-03] MEDS: DOCUSATE SODIUM 100 MG CAP PO SCH ×2 (09:10→20:47)
[2019-03-03 10:09] LABS: HEMATOCRIT 33.7 % (36.0-47.0); HEMOGLOBIN 10.7 g/dl (12.0-15.5); MEAN CORPUSCULAR HEMOGLOBIN 30.7 pg (27.0-33.0); MEAN CORPUSCULAR HGB CONC 31.8 g/dl (32.0-36.5); MEAN CORPUSCULAR VOLUME 96.6 fl (80.0-96.0); PLATELET COUNT, AUTOMATED 204 10^3/uL (150-450); RED BLOOD COUNT 3.49 10^6/uL (4.00-5.40); WHITE BLOOD COUNT 5.9 10^3/uL (4.0-10.0)
[2019-03-03 10:23] LABS: BLOOD UREA NITROGEN 13 MG/DL (7-18); CALCIUM LEVEL 8.3 MG/DL (8.8-10.2); CARBON DIOXIDE LEVEL 24 MEQ/L (21-32); CHLORIDE LEVEL 111 MEQ/L (98-107); CREATININE FOR GFR 0.86 MG/DL (0.55-1.30); GLOMERULAR FILTRATION RATE > 60.0 (>32); GLUCOSE, FASTING 172 MG/DL (70-100); POTASSIUM SERUM 4.1 MEQ/L (3.5-5.1); SODIUM LEVEL 142 MEQ/L (136-145)
[2019-03-03 11:49] LABS: TOTAL 25(OH) VITAMIN D 17.2 NG/ML (30.0-100.0)
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
[2019-03-03] MEDS: VITAMIN D 1,000 INTERNATIONAL UNITS TABLET PO SCH (13:51)
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
[2019-03-03] MEDS: DONEPEZIL 5 MG TAB PO SCH (20:48)
[2019-03-04 02:00] VITALS: BP 120/64
[2019-03-04] MEDS: LEVOTHYROXINE 25MCG TABLET (0.025MG) PO SCH (05:16)
[2019-03-04] MEDS: ACETAMINOPHEN TAB 650MG DOSE (2X325MG) PO PRN ×2 (05:17→17:49)
[2019-03-04 06:00] VITALS: BP 133/82
[2019-03-04] MEDS: DOCUSATE SODIUM 100 MG CAP PO SCH ×2 (08:32→20:25)
[2019-03-04] MEDS: VITAMIN D 1,000 INTERNATIONAL UNITS TABLET PO SCH (08:32)
[2019-03-04] MEDS: CYANOCOBALAMIN 500 MCG TAB PO SCH (08:32)
[2019-03-04] MEDS: ENOXAPARIN 40 MG/0.4 ML SYRINGE (J1650) SC SCH (08:33)
[2019-03-04] MEDS ORDERED: VITAMIN D 50,000 UNITS CAPSULE (ERGOCALCIFEROL 1.25MG) PO SCH (09:00)
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
[2019-03-04 14:00] VITALS: BP 126/69
[2019-03-04] MEDS: DONEPEZIL 5 MG TAB PO SCH (20:25)
[2019-03-04 20:26] VITALS: BP 146/78
[2019-03-05 06:18] VITALS: BP 143/78
[2019-03-05] MEDS: LEVOTHYROXINE 25MCG TABLET (0.025MG) PO SCH (06:20)
[2019-03-05] MEDS: ACETAMINOPHEN TAB 650MG DOSE (2X325MG) PO PRN (06:20)
[2019-03-05] MEDS: DOCUSATE SODIUM 100 MG CAP PO SCH (08:07)
[2019-03-05] MEDS: ENOXAPARIN 40 MG/0.4 ML SYRINGE (J1650) SC SCH (08:07)
[2019-03-05] MEDS: CYANOCOBALAMIN 500 MCG TAB PO SCH (08:07)
[2019-03-05 08:36] LABS: HEMATOCRIT 31.3 % (36.0-47.0); MEAN CORPUSCULAR HEMOGLOBIN 29.9 pg (27.0-33.0); MEAN CORPUSCULAR HGB CONC 31.9 g/dl (32.0-36.5); MEAN CORPUSCULAR VOLUME 93.7 fl (80.0-96.0); PLATELET COUNT, AUTOMATED 209 10^3/uL (150-450); RED BLOOD COUNT 3.34 10^6/uL (4.00-5.40); WHITE BLOOD COUNT 4.5 10^3/uL (4.0-10.0)
[2019-03-05 09:07] LABS: BLOOD UREA NITROGEN 12 MG/DL (7-18); CALCIUM LEVEL 8.4 MG/DL (8.8-10.2); CARBON DIOXIDE LEVEL 28 MEQ/L (21-32); CHLORIDE LEVEL 109 MEQ/L (98-107); CREATININE FOR GFR 0.61 MG/DL (0.55-1.30); GLOMERULAR FILTRATION RATE > 60.0 (>32); GLUCOSE, FASTING 84 MG/DL (70-100); POTASSIUM SERUM 3.7 MEQ/L (3.5-5.1); SODIUM LEVEL 143 MEQ/L (136-145)
[2019-03-05] MEDS ORDERED: ACET1TAB55 PO (10:41)
[2019-03-05] MEDS ORDERED: ASPI81CH16 PO (10:41)
[2019-03-05] MEDS ORDERED: DRIS50003 PO (10:41)
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
== END 2019-03-05 12:48 | disposition home or self-care (01) | DRG 313 ==
LOC: M ED 15:35 → M ED INP 15:36 → M MS5PR 22:10 → OBSVTOIN 03-02 10:37
PROVIDERS: ADMIT Internal Medicine; ATTEND Internal Medicine
PROC: 0QSH04Z Reposition Left Tibia with Internal Fixation Device, Open Approach (ICD-10-PCS; principal; 2019-03-02 18:00)
DX: S82.52XA Displaced fracture of medial malleolus of left tibia, initial encounter for closed fracture (principal); F03.90 Unspecified dementia, unspecified severity, without behavioral disturbance, psychotic disturbance, mood disturbance, and anxiety; E03.9 Hypothyroidism, unspecified; L93.0 Discoid lupus erythematosus; Z90.49 Acquired absence of other specified parts of digestive tract; Z90.710 Acquired absence of both cervix and uterus; Z79.899 Other long term (current) drug therapy; V43.52XA Car driver injured in collision with other type car in traffic accident, initial encounter; Y92.410 Unspecified street and highway as the place of occurrence of the external cause

== ENCOUNTER → 2019-12-30 | Outpatient (REF) | payer MEDICARE, OTHER ==
[~2019-12-30] MED LIST changes: +ACET1TAB55 PO; +ASPI81CH16 PO; -ASPI81TA85 PO; +ASPI81TA86 PO; +DRIS50003 PO; +TRAZ-252 PO; +VITA100018 PO
[2019-12-30 13:10] LABS: HEMOGLOBIN A1c 5.6 %
[2019-12-30 13:14] LABS: ALBUMIN 3.5 GM/DL (3.2-5.2); ALT/SGPT 17 U/L (12-78); BILIRUBIN,TOTAL 0.4 MG/DL (0.2-1.0); BLOOD UREA NITROGEN 20 MG/DL (7-18); C REACTIVE PROTEIN QUANTITATIV < 0.30 MG/DL (0.00-0.30); CALCIUM LEVEL 8.7 MG/DL (8.8-10.2); CARBON DIOXIDE LEVEL 27 MEQ/L (21-32); CHLORIDE LEVEL 110 MEQ/L (98-107); CREATININE FOR GFR 0.78 MG/DL (0.55-1.30); GLOMERULAR FILTRATION RATE > 60.0 (>32); GLUCOSE, FASTING 81 MG/DL (70-100); POTASSIUM SERUM 4.4 MEQ/L (3.5-5.1); SODIUM LEVEL 139 MEQ/L (136-145); TOTAL 25(OH) VITAMIN D 23.2 NG/ML (30.0-100.0); TOTAL PROTEIN 7.3 GM/DL (6.4-8.2); VITAMIN B12 LEVEL 605 PG/ML (247-911)
== END ==
LOC: M SFHCPLAZ 10:18
PROVIDERS: ATTEND Nurse Practitioner Adult Health
DX: M32.9 Systemic lupus erythematosus, unspecified (principal); E03.9 Hypothyroidism, unspecified; E55.9 Vitamin D deficiency, unspecified; E53.8 Deficiency of other specified B group vitamins; Z13.1 Encounter for screening for diabetes mellitus; Z79.899 Other long term (current) drug therapy; Z23 Encounter for immunization
CPT/HCPCS: 36415; 80053; 82306; 82607; 83036; 84443; 85652; 86140; 90732; G0009; G0463

== ENCOUNTER → 2020-05-26 | Outpatient (REF) | payer MEDICARE, OTHER ==
[2020-05-26 18:04] LABS: BASO % 0.4 % (0.0-1.0); HEMATOCRIT 40.4 % (36.0-47.0); HEMOGLOBIN 12.7 g/dl (12.0-15.5); LYMPH # 0.8 10^3/uL (1.5-5.0); MEAN CORPUSCULAR HEMOGLOBIN 29.5 pg (27.0-33.0); MEAN CORPUSCULAR HGB CONC 31.4 g/dl (32.0-36.5); MONO # 0.7 10^3/uL (0.0-0.8); NEUTROPHILS # 3.5 10^3/uL (1.5-8.5); NEUTROPHILS % 69.6 % (36.0-66.0); PLATELET COUNT, AUTOMATED 343 10^3/uL (150-450)
[2020-05-26 18:27] LABS: ALBUMIN 2.8 GM/DL (3.2-5.2); ALT/SGPT 16 U/L (12-78); BILIRUBIN,TOTAL 0.5 MG/DL (0.2-1.0); BLOOD UREA NITROGEN 11 MG/DL (7-18); CARBON DIOXIDE LEVEL 24 MEQ/L (21-32); CHLORIDE LEVEL 101 MEQ/L (98-107); CREATININE FOR GFR 0.92 MG/DL (0.55-1.30); GLOMERULAR FILTRATION RATE > 60.0 (>32); GLUCOSE, FASTING 107 MG/DL (70-100); POTASSIUM SERUM 3.8 MEQ/L (3.5-5.1); SODIUM LEVEL 137 MEQ/L (136-145); TOTAL PROTEIN 8.1 GM/DL (6.4-8.2)
== END ==
LOC: M SFHCPLAZ 15:26
PROVIDERS: ATTEND Physician Assistant
DX: R53.83 Other fatigue (principal); R53.81 Other malaise; R05 Cough

== ENCOUNTER 2020-05-28 14:12 | Inpatient (IN) | payer MEDICARE, OTHER ==
[~2020-05-28] VITALS: Ht 152.4 cm; Wt 65.0 kg
[2020-05-28] MEDS ORDERED: NS 1,000 ML IV ONE (14:45)
[2020-05-28 15:48] LABS: BASO % 0.2 % (0.0-1.0); EOS % 0.5 % (0.0-3.0); HEMOGLOBIN 11.2 g/dl (12.0-15.5); LYMPH # 0.5 10^3/uL (1.5-5.0); LYMPH % 12.9 % (24.0-44.0); MEAN CORPUSCULAR HEMOGLOBIN 28.8 pg (27.0-33.0); MEAN CORPUSCULAR HGB CONC 31.1 g/dl (32.0-36.5); MEAN CORPUSCULAR VOLUME 92.5 fl (80.0-96.0); MONO # 0.7 10^3/uL (0.0-0.8); MONO % 17.1 % (0.0-5.0); NEUTROPHILS # 2.9 10^3/uL (1.5-8.5); NEUTROPHILS % 68.3 % (36.0-66.0); PLATELET COUNT, AUTOMATED 325 10^3/uL (150-450); RED BLOOD COUNT 3.89 10^6/uL (4.00-5.40); WHITE BLOOD COUNT 4.2 10^3/uL (4.0-10.0)
[2020-05-28 16:27] LABS: RSV AMPLIFICATION NEGATIVE (NEGATIVE)
[2020-05-28 16:28] LABS: ALT/SGPT 16 U/L (12-78); BLOOD UREA NITROGEN 9 MG/DL (7-18); CARBON DIOXIDE LEVEL 26 MEQ/L (21-32); CHLORIDE LEVEL 103 MEQ/L (98-107); CREATININE FOR GFR 0.66 MG/DL (0.55-1.30); GLOMERULAR FILTRATION RATE > 60.0 (>32); GLUCOSE, FASTING 114 MG/DL (70-100); POTASSIUM SERUM 4.1 MEQ/L (3.5-5.1); SODIUM LEVEL 140 MEQ/L (136-145)
[2020-05-28 16:29] LABS: ALBUMIN 2.2 GM/DL (3.2-5.2); BILIRUBIN,DIRECT < 0.1 MG/DL (0.0-0.2); BILIRUBIN,TOTAL 0.4 MG/DL (0.2-1.0); CK-MB VALUE MASS 4.3 NG/ML (<3.6); CPK CREATINE PHOSPHOKINASE 278 U/L (26-192); MB/CK RELATIVE INDEX 1.55 (< OR =4); THYROXINE (T4) 9.1 UG/DL (4.5-12.0); TOTAL PROTEIN 6.7 GM/DL (6.4-8.2); TROPONIN I < 0.02 NG/ML (< 0.10)
--- NOTE | 2020-05-28 17:07 | REP ---
INDICATION: DYSPNEA/COUGH COMPARISON: 06/28/2010 TECHNIQUE: Portable AP view of the chest FINDINGS: Mediastinum and cardiac silhouette are within normal limits and stable. Lung leiva demonstrate chronic changes. Trace basilar atelectasis and small pleural reactions cannot be excluded. No pneumothorax. Skeletal structures intact. IMPRESSION: Chronic appearing changes. Cannot exclude trace basilar atelectasis and small pleural reactions. <Electronically signed by Onel Mcgee > 05/28/20 [id number]
[2020-05-28 17:32] LABS: FERRITIN 373 NG/ML (8-252); LDH LACTATE DEHYDROGENASE 308 U/L (84-246)
[2020-05-28] MEDS ORDERED: dexameTHASONE 4 MG/ML 1ML VIAL (J1100 PER 1MG) IV SCH (18:00)
[2020-05-28 18:20] LABS: INR 1.17; PROTHROMBIN TIME 15.2 SECONDS (12.5-14.3)
--- NOTE | 2020-05-28 18:46 | HPEPDOC ---
General Date of Admission 05/28/2020 Date of Service: May 28, 2020 Attending Physician: CHUN SILVA MD Chief Complaint HISTORY OF PRESENT ILLNESS 83 y/o elderly female with PMHx significant for dementia, lupus, hypothyroidism, presents to [facility] ER due to generalized weakness and malaise. The pts daughter Conner brought her to the [facility] health clinic to get evaluated but she was sent back home after getting some lab works. She states that everything she ate was bitter. She lives at home with her nephew whos 41 and can do most of her ADLs including showering. I called into the patients room to a history from her. She is AAOx2 and at her baseline dementia. She states that shes had a dry nonp roductive cough for the past few weeks, but otherwise feels okay. She is unsure why she is at the hospital though. Denies CP, SOB, abdominal pain, fever, chills, n/v/d. In the room, shes satting at 93% on RA. PAST MEDICAL HISTORY Notable for lupus, hypothyroidism and mild dementia. PAST SURGICAL HISTORY Cholecystectomy and hysterectomy. ALLERGIES NO KNOWN DRUG ALLERGIES. MEDICATIONS Vitamin B12 donepezil levothyroxine SOCIAL HISTORY The patient does not abuse alcohol or illicit drugs and does not smoke cigarettes. She has multiple family members involved in her care. They say tatiana t lately she has had some mild dementia. Of note, I did not detect any dementia while speaking to the patient. PAST MEDICAL HISTORY: Dementia Cholelithiasis Hypothyroidism Lupus Hx of fractures PAST SURGICAL HISTORY: cholecystectomy hysterectomy SOCIAL HISTORY: denied ETOH or drug use she smoked about 1 pack per day but quit smoking 40 y ago when she did smoke FAMILY HISTORY: Mother dementia Father ; had prostate ca Son and 2 daughters- non contributory Has Her sister COPD Her brother alive 66 ALLERGIES: Please see below ROS: All 10 points reviewed. See HPI PHYSICAL EXAM: VS: see below: General: elderly female, NAD, lying in bed, satting 93% RA HEENT: PERRLA, EOMI, no sclera icterus, no hearing loss Neck: supple, normal ROM, no JVD Respiratory: lungs CTAB, no wheeze, no rales, no crackles CVS: normal S1, S2, no murmurs gallops rubs appreciated Abdomen: non distended, no significant epigastric tenderness, + BS Extremities: no edema, pulses 2+ lower extr MSK: no joint deformities, normal ROM Neuro:AAOx2 at baseline dementia, no focal neuro deficits, moving all 4 extremities, CN2-12 intact. Strength 5/5 in all 4 extremities. No nystagmus. LABS: see below IMAGING: XR Chest Chronic appearing changes. Cannot exclude trace basilar atelectasis and small pleural reactions. Assessment and Plan: 84 y/o female presents to ER with 3 days of malaise. Upon arriving in ER shes tested positive for COVID and has elevated inflammatory markers. She denies SOB, fevers, chills and is satting 92-93 % on RA. She will be admitted for further care and evaluation. Dyspnea / Desaturation with ambulation - likely 2/2 COVID19 viral pneumonia, less likely 2/2 bacterial pneumonia - Patient's been having malaise for the past couple of days -XR chest- not too impressive - She's satting from 91-95% on RA currently - Will start on IV dexamethasone - Will order procal - Will start on incentive spirometry and acapella - O2 NC as needed - Physical exam essentially negative - Inflammatory markers do not appear to be significantly elevated - PT/OT eval and treat - Droplet and airborne isolation #Hypothyroidism - c/.w synthroid #Dementia - continue memantine DVT ppx: Lovenox GI ppx: pepcid 20 IVF: none Diet: regular Code status: DNR confirmed with patient's proxy over the phone Disposition: If continues to saturate well, will discharge back home to quarantine. Continue PT/OT Home Medications Scheduled Donepezil HCl (Donepezil HCl) 10 Mg Tablet, 10 MG PO QHS, (Reported) Levothyroxine Sodium (Levothyroxine Sodium) 25 Mcg Tab, 25 MCG PO DAILY, (Report ed) Allergies Coded Allergies: No Known Allergies (Verified , 12/14/02) A-FIB/CHADSVASC A-FIB History Current/History of A-Fib/PAF?: No Current PO Anticoag Therapy: No Vital Signs Vital Signs Date Time Temp Pulse Resp B/P (MAP) Pulse Ox O2 Delivery O2 Flow Rate FiO2 05/28/20 16:30 85 120/61 (80) 92 Room Air 05/28/20 16:00 97.1 20 Laboratory Data Labs 24H Laboratory Tests 2 05/28/20 14:44: Immature Granulocyte % (Auto) 1.0, Neutrophils (%) (Auto) 68.3H, Lymphocytes (%) (Auto) 12.9L, Monocytes (%) (Auto) 17.1H, Eosinophils (%) (Auto) 0.5, Basophils (%) (Auto) 0.2, Neutrophils # (Auto) 2.9, Lymphocytes # (Auto) 0.5L, Monocytes # (Auto) 0.7, Eosinophils # (Auto) 0.0, Basophils # (Auto) 0.0, Nucleated Red Blood Cells % (auto) 0.0, Anion Gap 11, Glomerular Filtration Rate > 60.0, Lactic Acid Level 1.6, Calcium Level 8.0L, Ferritin 373H, Total Bilirubin 0.4, Direct Bilirubin < 0.1, Aspartate Amino Transf (AST/SGOT) 35, Alanine Aminotransferase (ALT/SGPT) 16, Alkaline Phosphatase 77, Lactate Dehydrogenase 308H, Total Creatine Kinase 278H, Creatine Kinase MB 4.3H, Creatine Kinase MB Relative Index 1.55, Troponin I < 0.02, C-Reactive Protein, Quantitative 11.40H, Total Protein 6.7, Albumin 2.2#L, Albumin/Globulin Ratio 0.5L, Thyroid Stimulating Hormone (TSH) 2.490, Thyroxine (T4) 9.1 05/28/20 15:09: Coronavirus (COVID-19)(PCR) POSITIVEA, Influenza Type A (RT-PCR) NEGATIVE, Influenza Type B (RT-PCR) NEGATIVE, Respiratory Syncytial Virus (PCR) NEGATIVE 05/28/20 15:48: Urine Color HO, Urine Appearance CLEAR, Urine pH 5.0, Urine Specific [place] 1.023, Urine Protein 1+H, Urine Glucose (UA) NEGATIVE, Urine Ketones NEGATIVE, Urine Blood NEGATIVE, Urine Nitrite NEGATIVE, Urine Bilirubin NEGATIVE, Urine Urobilinogen 4.0H, Urine Leukocyte Esterase NEGATIVE, Urine WBC (Auto) 1, Urine RBC (Auto) 0, Urine Hyaline Casts (Auto) 0, Urine Bacteria (Auto) 1+H, Urine Squamous Epithelial Cells 0, Urine Mucus (Auto) SMALL, Urine Sperm (Auto) 05/28/20 17:41: Prothrombin Time 15.2H, Prothromb Time International Ratio 1.17, Fibrinogen 707H, D-Dimer, Quantitative > 4000H CBC/BMP Laboratory Tests 05/28/20 14:44 Microbiology Microbiology 05/28/20 Blood Culture, Received Pending 05/28/20 Blood Culture, Received Pending Plan / VTE VTE Prophylaxis Ordered?: Yes GME ATTESTATION GME ATTESTATION My faculty preceptor for this patient encounter was physically present during the encounter and was fully available. All aspects of the patient interview, examination, medical decision making process, and medical care plan development were reviewed and approved by the faculty preceptor. The faculty preceptor is aware and concurs with the plan as stated in the body of this note and will attest to such by his/her cosignature. ATTENDING NOTE I, Chun Silva, have independently examined this patient and performed my own physical exam, as well as reviewed the documentation and edited where necessary. I have discussed in detail with the resident / student the findings and plan of treatment as documented by the resident / student and edited their note. I agree with their findings and treatment plan and have edited their documentation. I will continue to follow the patient during this hospital stay. Chief complaint: Who presented to the emergency room with complaints of weakness and decreased appetite History of present illness: Patient is an 84-year-old female was brought to the ER by her daughter because of decreased intake of food and weakness. I have called the daughter, Naveed Prieto ([phone]) to collect history and verified this history with the patient. Since Saturday. Patient has had a decrease intake of food and is experiencing weakness and noted that she didnt want to get out of bed. Patients daughter had taken her mother to the her primary care provider on Saturday for further evaluation. She had blood work done which was unrevealing. She was not tested for COVID. Since she was home from Saturday, patient continued to have a decreased appetite, refused to get out of bed, reporting that shes been tired. Patients daughter had called the ambulance today to bring her to the emergency room. However, patient refused to get into the ambulance instead she got into her daughters car and was driven to the emergency room. Currently patient denies any chest pain, shortness of breath, palpitations, abdominal pain, vomiting, diarrhea, or urinary discomfort. She does report a nonproductive cough and nausea. Patient denies any fevers while at home. Past Medical History: Dementia Lupus (off of medications) Hypothyroidism Anxiety / Depression History of Atopic dermatitis Vitamin B12 deficiency Vitamin D deficiency GERD Past Surgical History: Cholecystectomy (2017) Hysterectomy Allergies: See below Medications: See below Family History: - Mother . Father with a history of prostate cancer and Social History: - Denies the illicit drugs; prior use of tobacco and alcohol greater than 40 years ago - Denies recent travel or sick contacts - Lives with grandson Review of Systems: 10 point review of systems complete, all negative otherwise stated in HPI Physical exam: - Vitals: BP [120/61], HR [85], RR [20], Sat [92%RA], Temp [97.1F] - General: Lying in bed, No acute distress, Speaking in full sentences, AAOx2 - HEENT: NC, AT, PERRLA - CVS: RRR, +S1S2 - Lungs: Fair air entry bilaterally, No appreciable wheezing / rales / rhonchi - Abdomen: Soft, Non-distended, Non-tender - Extremities: No lower extremity edema, No calf tenderness - Neuro: No focal motor or sensory deficit - Skin: No visible rashes Labs: See below Imaging: CXR 05/28: Chronic appearing changes. Cannot exclude trace basilar atelectasis and small pleural reactions. EKG: See below Assessment and Plan: Mild Hypoxia - likely 2/2 COIVD19 infection - Patient is saturating at 91% while in the emergency room - Does not appear to be in respiratory distress - Inflammatory markers appear to be slightly elevated - CXR without any significant findings of pneumonia - Will start dexamethasone IV and continue; will transition to by mouth once patient is able to tolerate - Will provide oxygen to maintain saturation greater than 92% - Continue with incentive spirometer and a cappella Weakness / Fatigue - likely 2/2 COIVD19 infection - See above - Will provide symptomatic control - Will start PT and OT Dementia - c/w Donepezil Lupus - Off of medications Hypothyroidism - c/w Levothyroxine Anxiety / Depression - Currently not on medications History of Atopic dermatitis - Not on any topic agents Vitamin B12 deficiency / Vitamin D deficiency GERD - Will start Famotidine DVT prophylaxis - Will start Lovenox Discussed with son (Joselito Roca [phone]) and daughter (Mike Prieto: [phone]) - Code status: DNR / DNI Jen Matson DO May 28, 2020 18:46 CHUN SILVA MD May 28, 2020 19:02
[2020-05-28] MEDS ORDERED: DONEPEZIL 5 MG TAB PO SCH (21:00)
[2020-05-29] MEDS: FAMOTIDINE 20 MG TAB PO SCH ×2 (00:07→09:41)
[2020-05-29 00:55] VITALS: BP 164/74
[2020-05-29 01:22] VITALS: BP 151/68
[2020-05-29 04:00] VITALS: BP_SYST 124; BP_SYST 147; BP_DIAS 60; BP_DIAS 70
[2020-05-29] MEDS ORDERED: LEVOTHYROXINE 25MCG TABLET (0.025MG) PO SCH (09:00)
[2020-05-29] MEDS ORDERED: ENOXAPARIN 40MG/0.4ML SYRINGE (J1650 PER 10MG) SC SCH (09:00)
[2020-05-29] MEDS ORDERED: DEXA6TAB PO (09:25)
[2020-05-29 09:27] LABS: BASO % 0.3 % (0.0-1.0); HEMATOCRIT 39.6 % (36.0-47.0); HEMOGLOBIN 12.1 g/dl (12.0-15.5); LYMPH % 27.2 % (24.0-44.0); MEAN CORPUSCULAR HEMOGLOBIN 28.9 pg (27.0-33.0); MEAN CORPUSCULAR HGB CONC 30.6 g/dl (32.0-36.5); MEAN CORPUSCULAR VOLUME 94.5 fl (80.0-96.0); MONO # 0.4 10^3/uL (0.0-0.8); MONO % 10.3 % (0.0-5.0); NEUTROPHILS # 2.2 10^3/uL (1.5-8.5); NEUTROPHILS % 60.5 % (36.0-66.0); PLATELET COUNT, AUTOMATED 424 10^3/uL (150-450); RED BLOOD COUNT 4.19 10^6/uL (4.00-5.40); WHITE BLOOD COUNT 3.6 10^3/uL (4.0-10.0)
[2020-05-29 09:53] LABS: INR 1.04; PROTHROMBIN TIME 13.8 SECONDS (12.5-14.3)
[2020-05-29 09:54] LABS: PARTIAL THROMBOPLASTIN TIME 31.5 SECONDS (24.2-38.5)
--- NOTE | 2020-05-29 09:59 | DS.PDOC ---
Discharge Summary General Date of Admission May 28, 2020 at 18:22 Date of Discharge 05/29/2020 Discharge Summary PROCEDURES PERFORMED DURING STAY: [None]. ADMITTING DIAGNOSES / DISCHARGE DIAGNOSES: Mild Hypoxia - likely 2/2 COIVD19 infection Weakness / Fatigue - likely 2/2 COIVD19 infection Dementia Lupus Hypothyroidism Anxiety / Depression History of Atopic dermatitis Vitamin B12 deficiency / Vitamin D deficiency GERD DVT prophylaxis COMPLICATIONS/CHIEF COMPLAINT: Weakness / Fatigue HISTORY OF PRESENT ILLNESS: Patient is an 84-year-old female was brought to the ER by her daughter because of decreased intake of food and weakness. Information was acquired after discussion with the daughter, Naveed Prieto ([phone]) and verification with the patient. Since Saturday, patient has had a decrease intake of food and is experiencing weakness and noted that she didnt want to get out of bed. Patients daughter had taken her mother to the her primary care provider on Saturday for further evaluation. She had blood work done which was unrevealing; she was not tested for COVID. Since she was home from Saturday, patient continued to have a decreased appetite, refused to get out of bed, reporting that shes been tired. Patients daughter had called the ambulance today to bring her to the emergency room. However, patient refused to get into the ambulance instead she got into her daughters car and was driven to the ER. Patient was seen and examined at the bedside today. Has had an uneventful evening was seen eating breakfast saturating 97% on room air. After asking patie nt if she had any dizziness or lightheadedness, she replied "no, but if everyone keeps asking me, maybe I will." Patient denies any chest pain, palpitations, significant shortness of breath. Does report a mild cough. Denies any abdominal pain, diarrhea, or urinary discomfort. HOSPITAL COURSE: Mild Hypoxia - likely 2/2 COIVD19 infection - Patient is saturating at 91% while in the ER; currently is saturating 97% on room air - Does not appear to be in respiratory distress - Inflammatory markers pending - CXR 05/28: Chronic appearing changes. Cannot exclude trace basilar atelectasis and small pleural reactions. - c/w dexamethasone; will continue on discharge - Upon ambulation, patient had a slight drop in her saturation, however, quickly recovered back to 98% with rest - c/w incentive spirometer and acapella - Will have outpatient follow-up with primary care provider within the next 7 days Weakness / Fatigue - likely 2/2 COIVD19 infection - See above - Has worked with PT; will continue on discharge with home services Dementia - c/w Donepezil Lupus - Off of medications Hypothyroidism - c/w Levothyroxine Anxiety / Depression - Currently not on medications History of Atopic dermatitis - Not on any topic agents Vitamin B12 deficiency / Vitamin D deficiency GERD - c/w Famotidine DVT prophylaxis - c/w Lovenox DISCHARGE MEDICATIONS: Please see below. ALLERGIES: Please see below. PHYSICAL EXAMINATION ON DISCHARGE: Vitals (See below) General: Lying in bed, appears comfortable, AAOx3 HEENT: NC, AT CVS: +S1S2 Lungs: Fair air entry b/l, no wheezing / rhonchi / rales Abdomen: Soft, ND, NT Extremities: No evidence of edema, - Calf tenderness LABORATORY DATA: Please see below. ACTIVITY: [As tolerated]. DISCHARGE PLAN: Follow-up with primary care provider within the next 7 days Remain compliant with treatment plan and medications Return to the ER if you experience any problems DISPOSITION: Home with services DISCHARGE CONDITION: [Stable]. TIME SPENT ON DISCHARGE: 35 minutes Vital Signs/I&Os Vital Signs Date Time Temp Pulse Resp B/P (MAP) Pulse Ox O2 Delivery O2 Flow Rate FiO2 05/29/20 07:00 97 Nasal Cannula 1.0 05/29/20 04:00 98.7 75 20 147/70 (95) I&O- Last 24 Hours up to 6 AM 05/29/20 06:00 Intake Total 1000 ml Output Total 200 ml Balance 800 ml Laboratory Data Labs 24H Laboratory Tests 2 05/28/20 14:44: Immature Granulocyte % (Auto) 1.0, Neutrophils (%) (Auto) 68.3H, Lymphocytes (%) (Auto) 12.9L, Monocytes (%) (Auto) 17.1H, Eosinophils (%) (Auto) 0.5, Basophils (%) (Auto) 0.2, Neutrophils # (Auto) 2.9, Lymphocytes # (Auto) 0.5L, Monocytes # (Auto) 0.7, Eosinophils # (Auto) 0.0, Basophils # (Auto) 0.0, Nucleated Red Blood Cells % (auto) 0.0, Anion Gap 11, Glomerular Filtration Rate > 60.0, Lactic Acid Level 1.6, Calcium Level 8.0L, Ferritin 373H, Total Bilirubin 0.4, Direct Bilirubin < 0.1, Aspartate Amino Transf (AST/SGOT) 35, Alanine Aminotransferase (ALT/SGPT) 16, Alkaline Phosphatase 77, Lactate Dehydrogenase 308H, Total Creatine Kinase 278H, Creatine Kinase MB 4.3H, Creatine Kinase MB Relative Index 1.55, Troponin I < 0.02, C-Reactive Protein, Quantitative 11.40H, Total Protein 6.7, Albumin 2.2#L, Albumin/Globulin Ratio 0.5L, Thyroid Stimulating Hormone (TSH) 2.490, Thyroxine (T4) 9.1 05/28/20 15:09: Coronavirus (COVID-19)(PCR) POSITIVEA, Influenza Type A (RT-PCR) NEGATIVE, Influenza Type B (RT-PCR) NEGATIVE, Respiratory Syncytial Virus (PCR) NEGATIVE 05/28/20 15:48: Urine Color HO, Urine Appearance CLEAR, Urine pH 5.0, Urine Specific [place] 1.023, Urine Protein 1+H, Urine Glucose (UA) NEGATIVE, Urine Ketones NEGATIVE, Urine Blood NEGATIVE, Urine Nitrite NEGATIVE, Urine Bilirubin NEGATIVE, Urine Urobilinogen 4.0H, Urine Leukocyte Esterase NEGATIVE, Urine WBC (Auto) 1, Urine RBC (Auto) 0, Urine Hyaline Casts (Auto) 0, Urine Bacteria (Auto) 1+H, Urine Squamous Epithelial Cells 0, Urine Mucus (Auto) SMALL, Urine Sperm (Auto) 05/28/20 17:41: Prothrombin Time 15.2H, Prothromb Time International Ratio 1.17, Fibrinogen 707H, D-Dimer, Quantitative > 4000H 05/29/20 08:59: Immature Granulocyte % (Auto) 1.7, Neutrophils (%) (Auto) 60.5, Lymphocytes (%) (Auto) 27.2, Monocytes (%) (Auto) 10.3H, Eosinophils (%) (Auto) 0.0, Basophils (%) (Auto) 0.3, Neutrophils # (Auto) 2.2, Lymphocytes # (Auto) 1.0L, Monocytes # (Auto) 0.4, Eosinophils # (Auto) 0.0, Basophils # (Auto) 0.0, Nucleated Red Blood Cells % (auto) 0.0 CBC/BMP Laboratory Tests 05/28/20 14:44 12/20/20 08:59 Microbiology Microbiology 05/28/20 Blood Culture, Received Pending 05/28/20 Blood Culture, Received Pending Discharge Medications Scheduled Dexamethasone (Dexamethasone) 6 Mg Tablet, 6 TAB PO ONCE Donepezil HCl (Donepezil HCl) 10 Mg Tablet, 10 MG PO QHS, (Reported) Levothyroxine Sodium (Levothyroxine Sodium) 25 Mcg Tab, 25 MCG PO DAILY, (Reported) Allergies Coded Allergies: No Known Allergies (Verified , 12/14/02) FARA AMIN MD May 29, 2020 09:59
[2020-05-29 10:07] LABS: ALBUMIN 2.4 GM/DL (3.2-5.2); ALT/SGPT 16 U/L (12-78); BILIRUBIN,DIRECT 0.2 MG/DL (0.0-0.2); BILIRUBIN,TOTAL 0.3 MG/DL (0.2-1.0); BLOOD UREA NITROGEN 11 MG/DL (7-18); CALCIUM LEVEL 8.5 MG/DL (8.8-10.2); CARBON DIOXIDE LEVEL 24 MEQ/L (21-32); CHLORIDE LEVEL 104 MEQ/L (98-107); CREATININE FOR GFR 0.65 MG/DL (0.55-1.30); FERRITIN 450 NG/ML (8-252); GLOMERULAR FILTRATION RATE > 60.0 (>32); GLUCOSE, FASTING 122 MG/DL (70-100); MAGNESIUM LEVEL 2.4 MG/DL (1.8-2.4); POTASSIUM SERUM 4.1 MEQ/L (3.5-5.1); SODIUM LEVEL 139 MEQ/L (136-145); TOTAL PROTEIN 7.4 GM/DL (6.4-8.2)
--- NOTE | 2020-05-29 19:03 | ECGEPIP ---
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
== END 2020-05-29 14:15 | disposition home health service (06) | DRG 179 ==
LOC: M ED 14:12 → M ED INP 18:22 → ENRESERV 21:09 → M 4MAIN 05-29 00:46
PROVIDERS: ADMIT Internal Medicine; ATTEND Internal Medicine
DX: U07.1 COVID-19 (principal); E03.9 Hypothyroidism, unspecified; L93.0 Discoid lupus erythematosus; F03.90 Unspecified dementia, unspecified severity, without behavioral disturbance, psychotic disturbance, mood disturbance, and anxiety; R09.02 Hypoxemia; R53.1 Weakness; R53.83 Other fatigue; F41.9 Anxiety disorder, unspecified; F32.9 Major depressive disorder, single episode, unspecified; E55.9 Vitamin D deficiency, unspecified; E53.8 Deficiency of other specified B group vitamins; K21.9 Gastro-esophageal reflux disease without esophagitis; Z79.899 Other long term (current) drug therapy

== ENCOUNTER 2020-06-03 09:39 | Emergency (ER) | payer MEDICARE, OTHER ==
[~2020-06-03] VITALS: Ht 152.4 cm; Wt 65.0 kg
[~2020-06-03 09:39] MED LIST changes: +DEXA6TAB PO
[2020-06-03 12:49] VITALS: BP 117/58
== END 2020-06-03 12:50 | disposition home or self-care (01) ==
LOC: EDBD 09:39 → M ED 10:47
DX: U07.1 COVID-19 (principal); E07.9 Disorder of thyroid, unspecified; M32.9 Systemic lupus erythematosus, unspecified; Z79.899 Other long term (current) drug therapy; Z79.890 Hormone replacement therapy; Z87.891 Personal history of nicotine dependence

== ENCOUNTER 2020-10-13 18:18 | Inpatient (IN) | payer MEDICARE, OTHER ==
[~2020-10-13] VITALS: Ht 152.4 cm; Wt 70.0 kg
[~2020-10-13 18:18] MED LIST changes: -ALEN70TA74 PO; +ALEN70TA82 PO
[2020-10-13] MEDS ORDERED: IBUP-1022 PO (18:30)
[2020-10-13] MEDS ORDERED: AMOX875T2 PO (18:30)
--- NOTE | 2020-10-13 19:16 | REP ---
INDICATION: CVA. COMPARISON: Comparison portable chest x-ray is from May 28, 2020. TECHNIQUE: Portable upright AP chest radiograph. FINDINGS: The lungs are well inflated and free of infiltrate. Pleural angles are sharp. Heart size is normal. Pulmonary vasculature is not increased. EKG monitoring electrodes are seen. IMPRESSION: No active disease. <Electronically signed by Indra Domingo > 10/13/20 [id number]
--- NOTE | 2020-10-13 19:28 | REPVR ---
PROCEDURE INFORMATION: Exam: CT Head Without Contrast Exam date and time: 10/13/2020 7:00 PM Age: 85 years old Clinical indication: Visual disturbance and other: CVA; Additional info: CVA - nursing interventions must not delay CT TECHNIQUE: Imaging protocol: Computed tomography of the head without contrast. Radiation optimization: All CT scans at this facility use at least one of these dose optimization techniques: automated exposure control; mA and/or kV adjustment per patient size (includes targeted exams where dose is matched to clinical indication); or iterative reconstruction. COMPARISON: CT Head without contrast 03/01/2019 4:01 PM FINDINGS: Brain: The brain demonstrates diffuse volume loss. There is white matter hypodensity most consistent with chronic small vessel ischemic change. No definite evolving territorial infarct, slight apparent left occipital moreno-white differentiation loss on image 14 series 201, probably the result of motion artifact and CSF volume averaging. No hemorrhage. Cerebral ventricles: Stable ventriculomegaly. Bones/joints: Unremarkable. No acute fracture. Paranasal sinuses: Visualized sinuses are unremarkable. No fluid levels. Mastoid air cells: Visualized mastoid air cells are well aerated. Soft tissues: Unremarkable. IMPRESSION: No acute intracranial abnormality seen. Electronically signed by: Marlys Zarco On 10/13/2020 19:28:06 PM
[2020-10-13 20:19] LABS: BASO % 0.3 % (0.0-1.0); EOS # 0.1 10^3/uL (0.0-0.5); EOS % 0.8 % (0.0-3.0); HEMATOCRIT 38.6 % (36.0-47.0); LYMPH # 1.4 10^3/uL (1.5-5.0); LYMPH % 21.5 % (24.0-44.0); MEAN CORPUSCULAR HEMOGLOBIN 28.5 pg (27.0-33.0); MEAN CORPUSCULAR HGB CONC 31.1 g/dl (32.0-36.5); MEAN CORPUSCULAR VOLUME 91.7 fl (80.0-96.0); MONO # 0.9 10^3/uL (0.0-0.8); MONO % 13.6 % (2.0-8.0); NEUTROPHILS # 4.1 10^3/uL (1.5-8.5); NEUTROPHILS % 63.3 % (36.0-66.0); PLATELET COUNT, AUTOMATED 395 10^3/uL (150-450); RED BLOOD COUNT 4.21 10^6/uL (4.00-5.40); WHITE BLOOD COUNT 6.4 10^3/uL (4.0-10.0)
[2020-10-13 20:54] LABS: CK-MB VALUE MASS < 1.0 NG/ML (<3.6); CPK CREATINE PHOSPHOKINASE 346 U/L (26-192); MB/CK RELATIVE INDEX 0.29 (< OR =4); TROPONIN I < 0.02 NG/ML (< 0.10)
[2020-10-13 21:24] LABS: RSV AMPLIFICATION NEGATIVE (NEGATIVE)
--- NOTE | 2020-10-13 21:52 | HPEPDOC ---
[facility] Medical History & Physical Date of Admission October 13, 2020 Date of Service: October 13, 2020 History and Physical CHIEF COMPLAINT: Vision problem HISTORY OF PRESENT ILLNESS: This is an 85-year-old female history of hypothyroidism, lupus, dementia who was brought in by her family because they reported she was having vision problems. Daughter was at bedside and most of the history was obtained from her as patient had trouble remembering recent events. Daughter tells me that today richi watching TV with him when she had asked her family to turn on the television because she couldn't see it and thought it was black however the television was started on. This lasted for about 2 hours and then resolved. Later that day she was unable to see her Which was sitting right in front of her. Daughter tells me that these issues have been an off for the past 5 days that over the week and her grandson noticed her speech wasn't clear and that he thought she had drooping of her left eyelid this also resolved that same day this past Saturday. Daughter tells me that these problems are new which prompted her to bring her to the hospital for evaluation. On review of systems daughter tells me that her mom has been having a severe headache the past 2 days however currently she does not have a headache. The patient herself denies having visual problems at this time she denies a headache denies any chest pain or shortness of breath denies having any pain denies any weakness or numbness anywhere. She says she feels well and w ants to go home. In the emergency department CT of the head was obtained that did not show any acute pathology. There is concern patient had a transient ischemic attack and will be admitted to the hospital service for further workup and management. PAST MEDICAL/SURGICAL HISTORY: Dementia Lupus (off of medications) Hypothyroidism Anxiety / Depression History of Atopic dermatitis GERD Cholecystectomy (2017) Hysterectomy SOCIAL HISTORY: Denies alcohol use Denies tobacco use Denies illicit drug use Lives at home by herself family frequently visits her to check up on her FAMILY HISTORY: Reviewed and none contributory to this admission ALLERGIES: Please see below. REVIEW OF SYSTEMS: 10 point review of systems complete all negative otherwise stated in HPI HOME MEDICATIONS: Please see below. PHYSICAL EXAMINATION: Constitutional: Awake and alert, in no apparent distress ENT: Sclera are clear. Mucosa is moist. Respiratory: Lungs CTA bilaterally. No respiratory distress. Cardiovascular: Regular heart rate and rhythm Gastrointestinal: Abdomen is soft, non distended, non tender, BS present. Musculoskeletal: No lower extremity edema. mental status: oriented to name, location, and date. However frequently forgetful has to be redirected and reminded of our conversation. Cranial nerves: Pupils are equal, round, and reactive to light. Extraocular muscles intact. Visual leiva full bilaterally. Smile is symmetrical. Tongue is midline. Intact sensation on both sides of face. Motor: At least 4+/5 in both upper and lower extremities without any drifting. Sensory: Intact to sensation bilaterally. Reflexes: Symmetrical, non-hyperreflexic. Not pathological. LABORATORY DATA: See below. IMAGING: See chart MICROBIOLOGY: Please see below. ASSESSMENT/PLAN 85-year-old female admitted for revision vision changes, speech changes which have resolved concern is for TIA patient is being admitted for stroke workup and management. # Suspected TIA: admitted for stroke workup. admit to inpatient service with telemetry monitoring. - CT head shows no acute intracranial abnormality - ASA 81 mg, Atorvastatin 80 mg QHS - MRI/MRA brain pending - Carotid ultrasound pending - Echo ordered - Fall & seizure precautions # Lupus: Off of medications # Anxiety/depression: Currently not on any medications # Hypothyroidism: resume Synthroid. # DVT prophylaxis: Heparin A Yousef Hospitalist Vital Signs Vital Signs Date Time Temp Pulse Resp B/P (MAP) Pulse Ox O2 Delivery O2 Flow Rate FiO2 10/13/20 20:19 10/13/20 18:18 97.0 90 20 95 Room Air Laboratory Data Labs 24H Laboratory Tests 2 10/13/20 19:34: Immature Granulocyte % (Auto) 0.5, Neutrophils (%) (Auto) 63.3, Lymphocytes (%) (Auto) 21.5L, Monocytes (%) (Auto) 13.6H, Eosinophils (%) (Auto) 0.8, Basophils (%) (Auto) 0.3, Neutrophils # (Auto) 4.1, Lymphocytes # (Auto) 1.4L, Monocytes # (Auto) 0.9H, Eosinophils # (Auto) 0.1, Basophils # (Auto) 0.0, Nucleated Red Blood Cells % (auto) 0.0, Activated Partial Thromboplast Time 35.8, Total Creatine Kinase 346H, Creatine Kinase MB < 1.0, Creatine Kinase MB Relative Index 0.29, Troponin I < 0.02 10/13/20 19:54: POC Prothrombin Time (Misc) 16.0H, POC INR (Misc) 1.4 10/13/20 19:57: POC Glucose (Misc Panel) 111H, POC Sodium (Misc Panel) 138, POC Potassium (Misc Panel) 4.8, POC Chloride (Misc Panel) 106, POC Total CO2 (Misc Panel) 28.0H, POC Blood Urea Nitrogen (Misc Panel 24, POC Ionized Calcium (Misc Panel) 4.1L, POC Creatinine (Misc Panel) 1.1, POC Hematocrit (Misc Panel) 37.0L 10/13/20 20:36: Coronavirus (COVID-19)(PCR) POSITIVEA, Influenza Type A (RT-PCR) NEGATIVE, Influenza Type B (RT-PCR) NEGATIVE, Respiratory Syncytial Virus (PCR) NEGATIVE CBC/BMP Laboratory Tests 10/13/20 19:34 Home Medications Scheduled Donepezil HCl (Donepezil HCl) 10 Mg Tablet, 10 MG PO QHS Levothyroxine Sodium (Levothyroxine Sodium) 25 Mcg Tab, 25 MCG PO DAILY Miscellaneous Medications Amoxicillin/Potassium Clav (Amox-Clav 875-125 mg Tablet) 1 Each Tablet Ibuprofen (Ibuprofen) 600 Mg Tablet Allergies Coded Allergies: No Known Allergies (Verified , 12/14/02) A-FIB/CHADSVASC A-FIB History Current/History of A-Fib/PAF?: No JOSE DOWELL MD October 13, 2020 21:52
[2020-10-14 01:47] VITALS: BP 161/68
[2020-10-14] MEDS: ATORVASTATIN 20 MG TAB PO SCH ×2 (02:01→21:24)
[2020-10-14] MEDS: ACETAMINOPHEN TAB 650MG DOSE (2X325MG) PO PRN ×3 (02:01→21:24)
[2020-10-14 04:07] VITALS: BP 151/65
--- NOTE | 2020-10-14 04:21 | ECGEPIP ---
[facility] - ED Test Date: 2020-10-13 Pat Name: BRENDA MARVIN Department: Room: - Gender: Female Patient Care Director: KEITH : 1935 Requested By: Kaylee Hicks Order Number: [id number] Reading MD: Saul Mims Measurements Intervals [place] Rate: 77 P: 10 NJ: 106 QRS: 3 QRSD: 72 T: -14 QT: 390 QTc: 441 Interpretive Statements Sinus rhythm with short [place] with occasional premature ventricular complexes Nonspecific ST-T wave abnormalities ectopy increased from tracing done 05-28-20 Electronically Signed on 10-14-2020 4:21:02 EDT by Saul Mims
[2020-10-14] MEDS: HEPARIN SOD (PORCINE) 5000UNITS/ML 1ML VIAL/SYRINGE SQ SCH ×3 (05:42→21:24)
[2020-10-14] MEDS: LEVOTHYROXINE 25MCG TABLET (0.025MG) PO SCH (05:42)
--- NOTE | 2020-10-14 07:54 | REP ---
INDICATION: Stroke workup COMPARISON: None. TECHNIQUE: Real-time ultrasound evaluation and duplex Doppler interrogation of the extracranial carotid vasculature is performed. FINDINGS: Antegrade flow is observed in both vertebral arteries. Right carotid: The right common carotid artery shows diffuse intimal thickening but is otherwise unremarkable. There minimal plaquing in the right carotid bulb and proximal ICA on two-dimensional scanning. Color flow and spectral Doppler interrogation are unremarkable on the right. Velocity chart right carotid: Right CCA PSV: 98 cm/S Right ICA PSV: 57 cm/S Right ICA EDV: 14 cm/S Right ECA PSV: 65 cm/S Right ICA/CCA ratio: 0.58 Left carotid: The left common carotid artery shows diffuse intimal thickening but is otherwise unremarkable. There is minimal plaquing in the left carotid bulb and proximal ICA on two-dimensional scanning. Color flow and spectral Doppler interrogation are unremarkable on the left. Velocity chart left carotid: Left CCA PSV: 90 cm/S Left ICA PSV: 77 cm/S Left ICA EDV: 26 cm/S Left ECA PSV: 67 cm/S Left ICA/CCA ratio: 0.85 IMPRESSION: Less than 50% category narrowing in the right internal carotid artery by Doppler velocity criteria. Less than 50% category narrowing in the left ICA by Doppler velocity criteria. <Electronically signed by Indra Domingo > 10/14/20 [id number]
[2020-10-14 09:18] LABS: BASO % 0.3 % (0.0-1.0); EOS # 0.1 10^3/uL (0.0-0.5); EOS % 0.8 % (0.0-3.0); HEMOGLOBIN 11.1 g/dl (12.0-15.5); LYMPH # 1.4 10^3/uL (1.5-5.0); LYMPH % 18.5 % (24.0-44.0); MEAN CORPUSCULAR HEMOGLOBIN 28.5 pg (27.0-33.0); MEAN CORPUSCULAR HGB CONC 30.8 g/dl (32.0-36.5); MEAN CORPUSCULAR VOLUME 92.3 fl (80.0-96.0); MONO # 1.1 10^3/uL (0.0-0.8); MONO % 15.1 % (2.0-8.0); NEUTROPHILS # 4.8 10^3/uL (1.5-8.5); NEUTROPHILS % 64.8 % (36.0-66.0); PLATELET COUNT, AUTOMATED 401 10^3/uL (150-450); WHITE BLOOD COUNT 7.4 10^3/uL (4.0-10.0)
[2020-10-14] MEDS ORDERED: OMEP-221 PO (09:29)
[2020-10-14 09:48] LABS: BLOOD UREA NITROGEN 15 MG/DL (7-18); CALCIUM LEVEL 8.6 MG/DL (8.8-10.2); CARBON DIOXIDE LEVEL 26 MEQ/L (21-32); CHLORIDE LEVEL 106 MEQ/L (98-107); CK-MB VALUE MASS < 1.0 NG/ML (<3.6); CPK CREATINE PHOSPHOKINASE 29 U/L (26-192); CREATININE FOR GFR 0.73 MG/DL (0.55-1.30); GLOMERULAR FILTRATION RATE > 60.0 (>32); GLUCOSE, FASTING 106 MG/DL (70-100); MB/CK RELATIVE INDEX 3.45 (< OR =4); POTASSIUM SERUM 3.6 MEQ/L (3.5-5.1); SODIUM LEVEL 140 MEQ/L (136-145); TROPONIN I < 0.02 NG/ML (< 0.10)
[2020-10-14] MEDS: ASPIRIN 81 MG CHEW TABLET PO SCH (10:07)
--- NOTE | 2020-10-14 12:31 | IPNPDOC ---
Text Note Date of Service The patient was seen on 10/14/20. NOTE Subjective: Patient is an 85-year-old female with a PMHx of Dementia (mild), SLE, Hypothyroidism, who was brought to the emergency room by her family because of vision problems, over the last couple of days, associated with some headaches. Patient was appears to the hospital service for further evaluation and treatment Patient was seen and examined at the bedside. Patient seen sitting up in bed, appears comfortable, not in any acute distress. Reports that her vision is doing relatively fine. Denies any chest pain, short of breath, cough, palpitations, abdominal pain or diarrhea. Objective: Vitals (See below) General: Lying in bed, no acute distress, comfortable, AAOx2 (not to time) HEENT: NC, AT CVS: +S1S2 Lungs: Fair air entry b/l, -w/r/r Abdomen: Soft, ND, NT Extremities: - Edema, - Calf tenderness Imaging: CXR 10/13: No active disease. CT head 10/13: No acute intracranial abnormality seen. Carotid Duplex US 10/14: Less than 50% category narrowing in the right internal carotid artery by Doppler velocity criteria. Less than 50% category narrowing in the left ICA by Doppler velocity criteria. Assessment and plan: Visual problems - possibly 2/2 TIA, unlikely 2/2 CVA - Currently reports no visual problems - Imaging noted above - Will check cardiac risk profile - MRI / MRA pending - ECHO pending - c/w PT and OT / Fall & Seizure precautions - c/w ASA 81 and Atorvastatin 80 Dementia, Mild - Patient lives alone; reports that her daughter visits frequently - c/w Donepezil SLE - Currently not on any medications Anxiety/depression - Currently not on any medications Hypothyroidism - c/w Levothyroxine GERD - c/w Omeprazole DVT prophylaxis - c/w Heparin Disposition: - Anticipate discharge tomorrow VS,Rich, I+O VS, Rich, I+O Laboratory Tests 10/13/20 19:34 10/14/20 08:33 Vital Signs Date Time Temp Pulse Resp B/P (MAP) Pulse Ox O2 Delivery O2 Flow Rate FiO2 10/14/20 04:07 96.1 99 20 151/65 (93) 98 Room Air I&O- Last 24 Hours up to 6 AM 10/14/20 05:59 Intake Total 0 ml Balance 0 ml FARA AMIN MD October 14, 2020 12:31
[2020-10-14 12:56] LABS: CHOLESTEROL LEVEL 184 MG/DL (<200); CHOLESTEROL RISK RATIO 4.487 (<5); HDL CHOLESTEROL 41 MG/DL (>40); LDL CHOLESTEROL 122 MG/DL (<100); NON-HDL-C 143 MG/DL; TRIGLYCERIDES LEVEL 104 MG/DL (<150)
[2020-10-14] MEDS: OMEPRAZOLE 20 MG CAP PO SCH (13:13)
[2020-10-14 13:51] VITALS: BP 127/56
[2020-10-14 20:00] VITALS: BP 136/63
[2020-10-14] MEDS ORDERED: DONEPEZIL 5 MG TAB PO SCH (21:00)
[2020-10-14 21:44] VITALS: BP 136/63
--- NOTE | 2020-10-14 22:21 | REPVR ---
PROCEDURE INFORMATION: Exam: MR Head Without Contrast Exam date and time: 10/14/2020 9:18 PM Age: 85 years old Clinical indication: Other: Tia/cva TECHNIQUE: Imaging protocol: MR of the head without contrast. COMPARISON: CT Head without contrast 10/13/2020 6:51 PM FINDINGS: Brain: There is no evidence of bright signal intensity within the brain on the diffusion weighting and no evidence of acute stroke. There is enlargement of the lateral ventricles which may be the result of atrophy. Communicating hydrocephalus however could give this appearance as well and recommend correlation with clinical history. There are a few patchy areas of bright signal intensity in the white matter probably chronic ischemic changes. Other vasculature: The vessels of the [id number] have a normal signal void. IMPRESSION: Enlargement of the lateral ventricles which may be secondary to atrophy. Communicating type hydrocephalus given identical appearance and clinical correlation would be important. Electronically signed by: Yehuda Rowell On 10/14/2020 22:20:58 PM
--- NOTE | 2020-10-14 22:27 | REPVR ---
PROCEDURE INFORMATION: Exam: MRA Head Without Contrast; Arteriography Exam date and time: 10/14/2020 9:18 PM Age: 85 years old Clinical indication: Other: Tia/cva TECHNIQUE: Imaging protocol: Magnetic resonance angiography head without contrast. Exam focused on the arteries. COMPARISON: CT Head without contrast 10/13/2020 6:51 PM FINDINGS: There is no evidence of aneurysm of the [id number]. Normal appearing vessels. The posterior communicating arteries bilaterally are not identified and this may be a developmental variant with aplasia of the posterior communicating arteries. Both vertebral arteries and basilar artery are identified. IMPRESSION: Possible lack of development of the posterior communicating arteries. Electronically signed by: Yehuda Rowell On 10/14/2020 22:26:46 PM
[2020-10-15] VITALS: BP 118/55
[2020-10-15 04:00] VITALS: BP 139/61
[2020-10-15 04:08] VITALS: BP 139/61
[2020-10-15] MEDS: HEPARIN SOD (PORCINE) 5000UNITS/ML 1ML VIAL/SYRINGE SQ SCH (06:20)
[2020-10-15] MEDS: LEVOTHYROXINE 25MCG TABLET (0.025MG) PO SCH (06:20)
[2020-10-15] MEDS: ACETAMINOPHEN TAB 650MG DOSE (2X325MG) PO PRN (06:26)
[2020-10-15 06:58] LABS: BASO % 0.3 % (0.0-1.0); EOS # 0.1 10^3/uL (0.0-0.5); EOS % 1.1 % (0.0-3.0); HEMATOCRIT 37.7 % (36.0-47.0); HEMOGLOBIN 11.6 g/dl (12.0-15.5); LYMPH # 1.8 10^3/uL (1.5-5.0); LYMPH % 19.4 % (24.0-44.0); MEAN CORPUSCULAR HEMOGLOBIN 28.2 pg (27.0-33.0); MEAN CORPUSCULAR HGB CONC 30.8 g/dl (32.0-36.5); MEAN CORPUSCULAR VOLUME 91.7 fl (80.0-96.0); MONO # 1.2 10^3/uL (0.0-0.8); MONO % 13.7 % (2.0-8.0); NEUTROPHILS # 5.8 10^3/uL (1.5-8.5); NEUTROPHILS % 64.7 % (36.0-66.0); PLATELET COUNT, AUTOMATED 427 10^3/uL (150-450); RED BLOOD COUNT 4.11 10^6/uL (4.00-5.40)
[2020-10-15 07:19] LABS: BLOOD UREA NITROGEN 14 MG/DL (7-18); CALCIUM LEVEL 8.3 MG/DL (8.8-10.2); CARBON DIOXIDE LEVEL 26 MEQ/L (21-32); CHLORIDE LEVEL 106 MEQ/L (98-107); CREATININE FOR GFR 0.52 MG/DL (0.55-1.30); GLOMERULAR FILTRATION RATE > 60.0 (>32); GLUCOSE, FASTING 86 MG/DL (70-100); MAGNESIUM LEVEL 2.3 MG/DL (1.8-2.4); POTASSIUM SERUM 3.6 MEQ/L (3.5-5.1); SODIUM LEVEL 140 MEQ/L (136-145)
[2020-10-15] MEDS: OMEPRAZOLE 20 MG CAP PO SCH (07:40)
[2020-10-15] MEDS: ASPIRIN 81 MG CHEW TABLET PO SCH (07:40)
[2020-10-15 08:00] VITALS: BP 132/63
[2020-10-15] MEDS ORDERED: ASPI81CH8 PO (08:59)
[2020-10-15] MEDS ORDERED: ATOR1TAB21 PO (10:04)
--- NOTE | 2020-10-15 10:07 | DS.PDOC ---
Discharge Summary General Date of Admission October 13, 2020 at 21:32 Date of Discharge 10/15/2020 Discharge Summary PROCEDURES PERFORMED DURING STAY: [None]. ADMITTING DIAGNOSES / DISCHARGE DIAGNOSES: s/p Visual problems; possibly 2/2 decreased visual acuity, less likely 2/2 TIA, unlikely 2/2 CVA COVID19 Dementia, Mild SLE Anxiety/depression Hypothyroidism GERD DVT prophylaxis COMPLICATIONS/CHIEF COMPLAINT: Visual problems HISTORY OF PRESENT ILLNESS: Patient is an 85-year-old female with a PMHx of Dementia (mild), SLE, Hypothyroidism, who was brought to the emergency room by her family because of vision problems, over the last couple of days, associated with some headaches. Patient was appears to the hospital service for further evaluation and treatment HOSPITAL COURSE: s/p Visual problems; possibly 2/2 decreased visual acutity, less likely 2/2 TIA, unlikely 2/2 CVA - She does not report any visual problems today; reported that she can see the television just fine - Imaging noted above - Cardiac risk profile noted - Imaging negative - ECHO complete; report pending - c/w PT and OT / Fall & Seizure precautions - c/w ASA 81 on discharge; will reduce atorvastatin - Will have outpatient follow-up with primary care provider, and urology and ophthalmology within the next 7 days COVID19 - Asymptomatic - Patient was positive for COVID19 in May as per daughter - Saturating well on room air - Imaging negative - c/w supportive care Dementia, Mild - Patient lives alone; reports that her daughter visits frequently - c/w Donepezil SLE - Currently not on any medications Anxiety/depression - Currently not on any medications Hypothyroidism - c/w Levothyroxine GERD - c/w Omeprazole DVT prophylaxis - c/w Heparin DISCHARGE MEDICATIONS: Please see below. ALLERGIES: Please see below. PHYSICAL EXAMINATION ON DISCHARGE: Vitals (See below) General: Patient is laying in bed, appears comfortable, not in any acute distress, is oriented to person, place, month, but not year HEENT: No muscle medical CVS: +S1S2 Lungs: Fair air entry b/l, auscultation is without any wheezing, rhonchi or rales Abdomen: Soft, nondistended and nontender Extremities: Lower extremities do not reveal any pitting edema LABORATORY DATA: Please see below. IMAGING: CXR 10/13: No active disease. CT head 10/13: No acute intracranial abnormality seen. Carotid Duplex US 10/14: Less than 50% category narrowing in the right internal carotid artery by Doppler velocity criteria. Less than 50% category narrowing in the left ICA by Doppler velocity criteria. MRI 10/14: Enlargement of the lateral ventricles which may be secondary to atrophy. Communicating type hydrocephalus given identical appearance and clinical correlation would be important. MRA 10/14: Possible lack of development of the posterior communicating arteries. ACTIVITY: [As tolerated]. DISCHARGE PLAN: Follow-up with primary care provider, and urology and ophthalmology within the next 7 days Remain compliant with treatment plan and medications Return to the ER if you experience any problems DISPOSITION: Home with services DISCHARGE CONDITION: [Stable]. TIME SPENT ON DISCHARGE: 35 minutes. Vital Signs/I&Os Vital Signs Date Time Temp Pulse Resp B/P (MAP) Pulse Ox O2 Delivery O2 Flow Rate FiO2 10/15/20 04:08 91 18 139/61 96 Room Air 10/15/20 04:00 97.6 I&O- Last 24 Hours up to 6 AM 10/15/20 05:59 Intake Total 1050 ml Output Total 350 ml Balance 700 ml Laboratory Data Labs 24H Laboratory Tests 2 10/15/20 06:11: Immature Granulocyte % (Auto) 0.8, Neutrophils (%) (Auto) 64.7, Lymphocytes (%) (Auto) 19.4L, Monocytes (%) (Auto) 13.7H, Eosinophils (%) (Auto) 1.1, Basophils (%) (Auto) 0.3, Neutrophils # (Auto) 5.8, Lymphocytes # (Auto) 1.8, Monocytes # (Auto) 1.2H, Eosinophils # (Auto) 0.1, Basophils # (Auto) 0.0, Nucleated Red Blood Cells % (auto) 0.0, Anion Gap 8, Glomerular Filtration Rate > 60.0, Calcium Level 8.3L, Magnesium Level 2.3 CBC/BMP Laboratory Tests 10/15/20 06:11 Discharge Medications Scheduled Aspirin (Children's Aspirin) 81 Mg Tab.chew, 81 MG PO DAILY Donepezil HCl (Donepezil HCl) 10 Mg Tablet, 10 MG PO QHS, (Reported) Levothyroxine Sodium (Levothyroxine Sodium) 25 Mcg Tab, 25 MCG PO QAM, (Reported) Scheduled PRN Omeprazole (Omeprazole) 40 Mg Capsule.dr, 40 MG PO DAILY PRN for HEARTBURN, (Reported) Allergies Coded Allergies: No Known Allergies (Verified , 12/14/02) FARA AMIN MD October 15, 2020 10:07
--- NOTE | 2020-10-17 07:55 | ECHO ---
DATE OF PROCEDURE: 10/14/2020 Age: 85 Gender: Female Height: 152 cm Weight: 70 kg REFERRING PHYSICIAN: Anthony Swanson MD. INDICATION: Transient cerebral ischemia, unspecified. MEASUREMENTS: 2D Measurements: Aortic root 2.8 cm Left atrium 3.0 cm Intraventricular septum 1.07 cm Posterior wall 0.83 cm Left ventricle diastole 4.3 cm Aortic annulus 2.0 cm Inferior vena cava 1.8 cm (more than 50% respiratory variation) Doppler Measurements: Trace aortic regurgitation No aortic stenosis Aortic valve velocity 154 cm/s LVOT velocity 6.6 cm/s Very mild mitral regurgitation Mitral E velocity 62.1 cm/s Mitral A velocity 84.3 cm/s Very mild tricuspid regurgitation No pulmonic regurgitation Pulmonary artery acceleration time 90 msec MITRAL ANNULAR TISSUE DOPPLER E prime septal 7.5 cm/s, E prime lateral 8.6 cm/s DESCRIPTION: Rhythm was sinus rhythm with mostly ventricular bigeminy. This was a moderately technically difficult echocardiogram. No pericardial effusion. This was a 2D, M-mode, color flow Doppler, and pulsed wave Doppler examination including mitral annular tissue Doppler. CONCLUSIONS: 1. Normal left ventricle internal dimensions and wall thickness. Normal regional LV wall motion and wall thickening. Normal LV systolic function. LVEF 60% by visual estimate. Grade 1 LV diastolic dysfunction (impaired relaxation filling pattern). 2. Moderate aortic valve sclerosis of a 3-cuspid aortic valve. Trace aortic regurgitation. No aortic stenosis. 3. Moderate mitral annular calcification. Very mild mitral regurgitation. No mitral stenosis. 4. Suggestive of mild elevation of pulmonary artery systolic pressure. Normal right ventricle size and systolic function. Suggestive of normal CVP. 5. Moderately technically difficult echocardiogram. [facility]
== END 2020-10-15 12:45 | disposition home health service (06) | DRG 125 ==
LOC: M ED 18:18 → M ED INP 21:32 → ENRESERV 23:24 → M 4MAIN 10-14 01:35
PROVIDERS: ADMIT Family Medicine; ATTEND Internal Medicine
DX: H53.9 Unspecified visual disturbance (principal); E03.9 Hypothyroidism, unspecified; F41.9 Anxiety disorder, unspecified; F32.9 Major depressive disorder, single episode, unspecified; L20.9 Atopic dermatitis, unspecified; F03.90 Unspecified dementia, unspecified severity, without behavioral disturbance, psychotic disturbance, mood disturbance, and anxiety; M32.9 Systemic lupus erythematosus, unspecified; K21.9 Gastro-esophageal reflux disease without esophagitis; Z90.49 Acquired absence of other specified parts of digestive tract; Z79.899 Other long term (current) drug therapy

== ENCOUNTER 2020-10-21 01:59 | Inpatient (IN) | payer MEDICARE, OTHER ==
[~2020-10-21] VITALS: Ht 154.9 cm; Wt 65.0 kg
[~2020-10-21 01:59] MED LIST changes: +AMOX875T2 PO; +ASPI81CH8 PO; +ATOR1TAB21 PO; +IBUP-1022 PO; +OMEP-221 PO
[2020-10-21] MEDS ORDERED: ALPRAZolam 0.25 MG TAB PO ONE (02:30)
[2020-10-21] MEDS ORDERED: MAALOX 30 ML SUSP *UDC PO PRN (03:20)
[2020-10-21] MEDS ORDERED: ACETAMINOPHEN TAB 650MG DOSE (2X325MG) PO PRN (03:20)
[2020-10-21] MEDS ORDERED: MOM 30ML SUSPENSION UDC PO PRN (03:20)
--- NOTE | 2020-10-21 03:24 | HPEPDOC ---
[facility] Medical History & Physical Date of Admission October 21, 2020 Date of Service: October 21, 2020 Primary Care Physician: HAZEL VINSON PA-C Attending Physician: JOSE EDUARDO BEAR MD History and Physical TIME OF SERVICE: 345am CHIEF COMPLAINT: sent to ER by daughter HISTORY OF PRESENT ILLNESS: The majority of the history was obtained from the ER records; the patient, who has dementia, denied having any acute c/o and reported that her family sent her here because she has a droopy eye and added that she has an appointment to have eye surgery in the near future. This 85 yr olds family called EMS because they feel like she has been hallucinating and lost her vision; the patients daughter thinks that her mother is delusional as she has been talking about going on a cruise and saying various other things that are not congruent with situation and has not been acting like her self for a few days. The patient reported that this was a misunderstanding and that she had a d ream about going on a cruise and told her family about it. REVIEW OF SYSTEMS: limited because the patient has dementia PAST MEDICAL/ SURGICAL HISTORY: Dementia, Lupus (off of medications), Hypothyro idism, Anxiety / Depression, History of Atopic dermatitis, GERD, Cholecystectomy (2016), Hysterectomy, COVID 19 PNA in May, despite receiving a COVID vaccine, she had a second positive COVID test on October 13 SOCIAL HISTORY: Lives at home by herself family frequently visits her to check up on her; she is a former smoker FAMILY HISTORY: Dementia, prostatate CA, COPD ALLERGIES: Please see below. HOME MEDICATIONS: Please see below. PHYSICAL EXAMINATION: Vital Signs Date Time Temp Pulse Resp B/P (MAP) Pulse Ox O2 Delivery O2 Flow Rate FiO2 10/21/20 02:12 172/78 (109) 10/21/20 02:14 96 96 10/21/20 02:17 20 Room Air 10/21/20 05:22 98.7 GENERAL APPEARANCE: well nourished and developed / slightly anxious HEENT: EOMI / MMM&P CARDIOVASCULAR: RRR/ NMRG / pulse bounding / + BLE edema LUNGS: not coughing or using accessory muscles/ lungs are CTAB on RA MUSCULOSKELETAL: NCAT / YESICA in upper extremities INTEGUMENT: not pale, flushed or diaphoretic NEUROLOGICAL: she is unable to tell where I am standing in the room but can hear me when I talk, is not tracking my movements, she cant tell how many fingers I am holding up PSYCHIATRIC: alert and oriented to person and place / per d/w sitter the patient appears oriented to place at times and at other moments she is confused LABORATORY DATA: IMAGING: n/a MICROBIOLOGY: COVID 19 + on May 28 and October 13 ASSESSMENT: is an 85 yr old w Dementia, SLE, Hypothyroidism, Anxiety / Depression, & second diagnosis of COVID 19 despite receiving a vaccine who was sent to the ER by family members for evaluation of Encephalopathy of unclear cause and visual hallucinations 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 I suspect she may have a variant that she didnt previously have and one that is resistant to the Vaccine Plan: will ask the day time to team to consult ID to determine if she is a candidate for MAB infusion (her daughter gave verbal consent over the phone) and to see if she is a candidate for enrollment in a clinical trial to determine which variant of COVID she has that is resistant to the vaccines 4 Hypothyroidism Plan: levothyroxine DVT px w Lovenox Dispo: home after at least 2 midnights stay Home Medications Scheduled Donepezil HCl (Donepezil HCl) 10 Mg Tablet, 10 MG PO QHS Levothyroxine Sodium (Levothyroxine Sodium) 25 Mcg Tab, 25 MCG PO DAILY Scheduled PRN Omeprazole (Omeprazole) 40 Mg Capsule.dr, 40 MG PO DAILY PRN for HEARTBURN Allergies Coded Allergies: No Known Allergies (Verified , 12/14/02) A-FIB/CHADSVASC A-FIB History Current/History of A-Fib/PAF?: No Current PO Anticoag Therapy: No JOSE EDUARDO BEAR MD October 21, 2020 03:24
[2020-10-21] MEDS ORDERED: EPINEPHrine INJ 1 MG/ML 1ML AMP IM PRN (03:55)
[2020-10-21] MEDS ORDERED: ALBUTEROL SULFATE 2.5 MG/0.5 ML INH NEB SOLN INH PRN (03:55)
[2020-10-21] MEDS ORDERED: methylPREDNISolone 125MG 2ML VIAL IV PRN (03:55)
[2020-10-21] MEDS ORDERED: ALBUTEROL 90 MCG/ACT 8GM HFA INHALER INH PRN (03:55)
[2020-10-21] MEDS ORDERED: BAMLANIVIMAB 700 MG, ETESEVIMAB 1,400 MG in NS 250 ML IV ONE (03:55)
[2020-10-21] MEDS ORDERED: diphenhydrAMINE 50MG/ML VIAL (J1200) IV PRN (03:55)
[2020-10-21] MEDS ORDERED: NS 1,000 ML IV SCH (03:55)
[2020-10-21] MEDS ORDERED: CASIRIVIMAB (REGN10933) 1,200 MG, IMDEVIMAB (REGN10987) 1,200 MG in NS 230 ML IV ONE (04:05)
[2020-10-21 04:32] LABS: BASO % 0.2 % (0.0-1.0); EOS % 0.2 % (0.0-3.0); HEMATOCRIT 35.2 % (36.0-47.0); HEMOGLOBIN 10.9 g/dl (12.0-15.5); LYMPH % 11.7 % (24.0-44.0); MEAN CORPUSCULAR HEMOGLOBIN 28.5 pg (27.0-33.0); MEAN CORPUSCULAR VOLUME 92.1 fl (80.0-96.0); MONO % 11.8 % (2.0-8.0); NEUTROPHILS # 6.2 10^3/uL (1.5-8.5); NEUTROPHILS % 75.1 % (36.0-66.0); PLATELET COUNT, AUTOMATED 441 10^3/uL (150-450); RED BLOOD COUNT 3.82 10^6/uL (4.00-5.40); WHITE BLOOD COUNT 8.3 10^3/uL (4.0-10.0)
[2020-10-21 04:48] LABS: BLOOD UREA NITROGEN 15 MG/DL (7-18); CARBON DIOXIDE LEVEL 28 MEQ/L (21-32); CHLORIDE LEVEL 106 MEQ/L (98-107); CREATININE FOR GFR 0.51 MG/DL (0.55-1.30); GLOMERULAR FILTRATION RATE > 60.0 (>32); GLUCOSE, FASTING 92 MG/DL (70-100); POTASSIUM SERUM 3.7 MEQ/L (3.5-5.1); SODIUM LEVEL 141 MEQ/L (136-145)
[2020-10-21] MEDS ORDERED: LEVOTHYROXINE 25MCG TABLET (0.025MG) PO SCH (06:00)
[2020-10-21 07:15] VITALS: BP 159/71
--- NOTE | 2020-10-21 08:57 | REP ---
INDICATION: confusion r/o PNA. COMPARISON: 10/13/2020. TECHNIQUE: Single portable AP view of the chest was performed. FINDINGS: There is mild patchy atelectasis or infiltrate along the left hemidiaphragm. There is slight elevation of the right hemidiaphragm unchanged. The heart is normal in size. There is calcification of the thoracic aorta. The mediastinal silhouette is unchanged. IMPRESSION: Mild patchy atelectasis or infiltrate left lung base. <Electronically signed by Gregory Calderon > 10/21/20 0854
[2020-10-21] MEDS ORDERED: ENOXAPARIN 40MG/0.4ML SYRINGE (J1650 PER 10MG) SC SCH (09:00)
[2020-10-21 14:25] LABS: C REACTIVE PROTEIN QUANTITATIV 15.8 MG/DL (0.00-0.30)
--- NOTE | 2020-10-21 14:48 | REPVR ---
PROCEDURE INFORMATION: Exam: CT Head Without Contrast Exam date and time: 10/21/2020 2:34 PM Age: 85 years old Clinical indication: Other: Vision changes, headache TECHNIQUE: Imaging protocol: Computed tomography of the head without contrast. Radiation optimization: All CT scans at this facility use at least one of these dose optimization techniques: automated exposure control; mA and/or kV adjustment per patient size (includes targeted exams where dose is matched to clinical indication); or iterative reconstruction. COMPARISON: CT Head without contrast 10/13/2020 6:51 PM FINDINGS: Brain: There is no acute intracranial hemorrhage or mass effect. Moderate diffuse volume loss is within the range of normal for patient age. There are small vessel ischemic changes within the periventricular and subcortical white matter, but the normal moreno-white matter delineation is maintained. Cerebral ventricles: Prominence of the ventricular system is commensurate with volume loss. Bones/joints: Unremarkable. No acute fracture. Paranasal sinuses: Visualized sinuses are unremarkable. No fluid levels. Mastoid air cells: Visualized mastoid air cells are well aerated. Soft tissues: Unremarkable. IMPRESSION: No acute hemorrhage or edema. Electronically signed by: Jennifer Hi On 10/21/2020 14:48:28 PM
--- NOTE | 2020-10-21 14:52 | IPNPDOC ---
Text Note Date of Service The patient was seen on 10/21/20. NOTE SUBJECTIVE: -No acute issues overnight -Very tired, sleeping through exam but will talk to me and answer with confused responses that are not congruent -Reports a severe headache at this time, was unable to grade it or describe it in further detail OBJECTIVE: Vitals: see below General: Patient is laying in bed, appears comfortable, not in any acute distress HEENT: NCAT, EOMI but not tracking by my prompt, anicteric, MMM CVS: +S1S2 Lungs: Fair air entry b/l, auscultation is without any wheezing, rhonchi or rales Abdomen: Soft, nondistended and nontender Extremities: no LE edema, WWP Neuro: no response to visual stimuli on my exam, confused, drowsy, awake on voice, oriented to self, did not remember her birthday, speech is clear, no facial droops, moving all extremities. LABORATORY DATA: WBC 8.3 Hgb 10.9 platelets 441 Na 141 K 3.7 Cr 0.51 10/13 covid-19 test was positive, no test on 10/21 ASSESSMENT: 85 yr old w Dementia, SLE, Hypothyroidism, Anxiety, Depression, & second diagnosis of asymptomatic COVID 19 who was sent to the ER by family members for evaluation of Encephalopathy and persistent now edyta vision loss. PLAN: Encephalopathy: new onset since 10/19 with reported vision decline and eventual edyta loss that started 10/12 and on 10/18 ophtho exam confirmed bilateral papilledema per Dr. Long. -Discussed with neurology who will see her given recently noted ventriculomegaly on MRI, elderly and confusion c/f NPH however this could explain the vision loss so have to consider other etiologies. Visual loss: She has Cataracts at baseline but her vision loss was sudden on 10/12. -Per daughter: 10/12 had acute vision changes with significant decline/loss --> on 10/13 presented for vision loss --> was worked up for TIA and also found to be covid-19 positive but asymptomatic --> on 10/18 she was seen by ophthalmology in the outpatient setting that reported "high pressure" behind her eyes nad Dr. Frank Sloan today reported observing papilledema. On 10/19 she developed acute confusion --> 10/20 she presented for acute confusion and persistent vision decline now edyta loss and has a headache. Did not get any brain imaging this encounter, so will begin with CT head. -Will check ESR, CRP -pending neuro eval -may have to transfer for neurosurgery evaluation, will await inflammatory markers and CT. Asymptomatic COVID 19 reinfection, diagnosed on 10/13/2020 -asymptomatic, received the monoclonal antibodies 1 week after confirmation of infection and asymptomatic --> s/p antibodies 10/20/2020 -will monitor -droplet precautions -s/p covid-19 vaccine -On discussion of reinfection after vaccination with Dr. Espana, should not be of concern as she is asymptomatic Hypothyroidism -levothyroxine DVT px w Lovenox Dispo: home after at least 2 midnights stay VS,Rich, I+O VS, Rich, I+O Laboratory Tests 10/21/20 03:50 Vital Signs Date Time Temp Pulse Resp B/P (MAP) Pulse Ox O2 Delivery O2 Flow Rate FiO2 10/21/20 07:15 98.2 102 20 159/71 (100) 98 Room Air JOSE MARTINEZ MD October 21, 2020 12:49
[2020-10-21 15:00] VITALS: BP 165/71
[2020-10-21] MEDS ORDERED: methylPREDNISolone 125MG 2ML VIAL IV ONE (19:20)
[2020-10-21 20:00] VITALS: BP 129/61
[2020-10-21] MEDS ORDERED: methylPREDNISolone 1,000 MG, VIAL MATE ADAPTER 1 EACH in NS 250 ML IV ONE (20:00)
--- NOTE | 2020-10-21 21:53 | DS.PDOC ---
Discharge Summary General Date of Admission October 21, 2020 at 03:18 Date of Discharge oct 21 2020 @ 910pm Attending Physician: JOSE MARTINEZ MD Specialist/Consultants Involve: Saul Ellis MD Discharge Summary ADMITTING DIAGNOSES: 1. 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 4 PMH: Dementia, Lupus (off of medications), Hypothyroidism, Anxiety / Depression, DISCHARGE DIAGNOSES: 1. Encephalopathy cause TBD 2 Visual loss possibly 2/2 Temporal arteritsi 3 Cleared asymptomatic COVID 19 reinfection COMPLICATIONS/CHIEF COMPLAINT: Dementia. HISTORY OF PRESENT ILLNESS: . Per HPI HISTORY OF PRESENT ILLNESS: This 85 yr olds family called EMS because they feel like she has been hallucinating and lost her vision; the patients daughter thinks that her mother is delusional as she has been talking about going on a cruise and saying various other things that are not congruent with situation and has not been acting like herself for a few days. The patient reported that this was a misunderstanding and that she had a dream about going on a cruise and told her family about it." HOSPITAL COURSE: She was admitted to the COVID floor pending repeat testing for evaluation of encephalopathy of unclear cause and visual hallucinations. 1. Encephalopathy - new onset since 10/19 with reported vision decline and eventual edyta loss that started 10/12 and on 10/18 ophtho exam confirmed bilateral papilledema per Dr. James Lemus. -Consulted neurology who will see the patient bc of recent hx of ventriculomegaly on MRI -CT head done to day was neg 2 Visual loss -She has Cataracts at baseline but her vision loss was sudden on 10/12. -Per daughter: 10/12 had acute vision changes with significant decline/loss --> on 10/13 presented for vision loss --> was worked up for TIA and also found to be covid-19 positive but asymptomatic --> on 10/18 she was seen by ophthalmology in the outpatient setting that reported "high pressure" behind her eyes nad Dr. Frank Sloan today reported observing papilledema. On 10/19 she developed acute confusion --> 10/20 she presented for acute confusion and persistent vision decline now edyta loss and has a headache. Did not get any brain imaging this encounter, so will begin with CT head. -ESR & CRP are elevated which raises concern for Temporal arteritis. -Solumedrol has been administered -Vascular Surgeon is available in house to complete a temporal artery biopsy therefore will transfer her to [facility] under the care for Dr. Butler 3 Asymptomatic COVID 19 reinfection, diagnosed on 10/13/2020 -Per Dr. Robin (ID) reinfection after vaccination should not be of concern -repeat COVID 19 PCR test today was negative 4 Atelectasis -will not treat for PNA bc she doesnt have URI symptoms or SIRS DISCHARGE MEDICATIONS: Please see below. ALLERGIES: Please see below. PHYSICAL EXAMINATION ON DISCHARGE: VITAL SIGNS: Please see below. GENERAL: NAD PSYCHIATRIC EXAMINATION: asleep but arousable w vocal stimuli LABORATORY DATA: Please see below. IMAGING: CT head neg Chest xray IMPRESSION: Mild patchy atelectasis or infiltrate left lung base. PROGNOSIS: guarded ACTIVITY: [As tolerated]. DIET: regular DISCHARGE PLAN: transfer to [facility] for temporal artery biopsy DISCHARGE CONDITION: [Stable]. TIME SPENT ON DISCHARGE: Greater than 45 minutes. Vital Signs/I&Os Vital Signs Date Time Temp Pulse Resp B/P (MAP) Pulse Ox O2 Delivery O2 Flow Rate FiO2 10/21/20 20:00 98.3 74 16 129/61 (83) 97 Room Air Laboratory Data Labs 24H Laboratory Tests 2 10/21/20 03:50: Immature Granulocyte % (Auto) 1.0, Neutrophils (%) (Auto) 75.1H, Lymphocytes (%) (Auto) 11.7L, Monocytes (%) (Auto) 11.8H, Eosinophils (%) (Auto) 0.2, Basophils (%) (Auto) 0.2, Neutrophils # (Auto) 6.2, Lymphocytes # (Auto) 1.0L, Monocytes # (Auto) 1.0H, Eosinophils # (Auto) 0.0, Basophils # (Auto) 0.0, Nucleated Red Blood Cells % (auto) 0.0, Anion Gap 7L, Glomerular Filtration Rate > 60.0, Calcium Level 8.0L 10/21/20 13:26: Erythrocyte Sedimentation Rate 126H, Fibrinogen 980H, Ferritin 345H, C-Reactive Protein, Quantitative 15.80H CBC/BMP Laboratory Tests 10/21/20 03:50 Microbiology Microbiology 10/21/20 Respiratory Virus Panel (PCR) ([facility]) - Final, Complete Discharge Medications Scheduled Donepezil HCl (Donepezil HCl) 10 Mg Tablet, 10 MG PO QHS, (Reported) Levothyroxine Sodium (Levothyroxine Sodium) 25 Mcg Tab, 25 MCG PO DAILY, ( Reported) Scheduled PRN Omeprazole (Omeprazole) 40 Mg Capsule.dr, 40 MG PO DAILY PRN for HEARTBURN, (Reported) Allergies Coded Allergies: No Known Allergies (Verified , 12/14/02) JOSE EDUARDO BEAR MD October 21, 2020 21:53
[2020-10-21 23:59] VITALS: BP 121/57
== END 2020-10-22 00:04 | disposition short-term general hospital (02) | DRG 545 ==
LOC: M ED 01:59 → M ED INP 03:18 → M 4MAIN 07:10
PROVIDERS: ADMIT Internal Medicine; ATTEND Internal Medicine
DX: M31.6 Other giant cell arteritis (principal); U07.1 COVID-19; H47.11 Papilledema associated with increased intracranial pressure; G93.40 Encephalopathy, unspecified; Z86.16 Personal history of COVID-19; F03.90 Unspecified dementia, unspecified severity, without behavioral disturbance, psychotic disturbance, mood disturbance, and anxiety; F41.9 Anxiety disorder, unspecified; F32.9 Major depressive disorder, single episode, unspecified; E03.9 Hypothyroidism, unspecified; Z79.899 Other long term (current) drug therapy; K21.9 Gastro-esophageal reflux disease without esophagitis

== ENCOUNTER 2021-02-20 18:13 | Emergency (ER) | payer MEDICARE, OTHER ==
[2021-02-20 21:19] LABS: BASO % 0.4 % (0.0-1.0); HEMATOCRIT 36.8 % (36.0-47.0); HEMOGLOBIN 11.5 g/dl (12.0-15.5); LYMPH # 2.2 10^3/uL (1.5-5.0); LYMPH % 26.3 % (24.0-44.0); MEAN CORPUSCULAR HEMOGLOBIN 29.9 pg (27.0-33.0); MEAN CORPUSCULAR HGB CONC 31.3 g/dl (32.0-36.5); MEAN CORPUSCULAR VOLUME 95.6 fl (80.0-96.0); MONO # 0.8 10^3/uL (0.0-0.8); NEUTROPHILS # 5.3 10^3/uL (1.5-8.5); NEUTROPHILS % 62.8 % (36.0-66.0); PLATELET COUNT, AUTOMATED 334 10^3/uL (150-450); RED BLOOD COUNT 3.85 10^6/uL (4.00-5.40); WHITE BLOOD COUNT 8.4 10^3/uL (4.0-10.0)
--- NOTE | 2021-02-20 21:28 | REPVR ---
PROCEDURE INFORMATION: Exam: CT Head Without Contrast Exam date and time: 02/20/2021 9:16 PM Age: 85 years old Clinical indication: Altered mental status/memory loss TECHNIQUE: Imaging protocol: Computed tomography of the head without contrast. Radiation optimization: All CT scans at this facility use at least one of these dose optimization techniques: automated exposure control; mA and/or kV adjustment per patient size (includes targeted exams where dose is matched to clinical indication); or iterative reconstruction. COMPARISON: CT Head without contrast 10/21/2020 2:37 PM FINDINGS: Brain: There is [id number] diffuse cerebellar atrophy. There is moderate age related parenchymal volume loss. White matter changes are demonstrated in the subcortical, centrum semiovale and periventricular white matter consistent with chronic age related small vessel ischemic changes. Cerebral ventricles: The degree of ventricular dilatation is normal for age and/or degree of atrophy present. Paranasal sinuses: Visualized sinuses are unremarkable. No fluid levels. Mastoid air cells: Visualized mastoid air cells are well aerated. Bones/joints: Unremarkable. No acute fracture. Soft tissues: Unremarkable. IMPRESSION: 1. There is [id number] diffuse cerebellar atrophy. 2. There is moderate age related parenchymal volume loss. White matter changes are demonstrated in the subcortical, centrum semiovale and periventricular white matter consistent with chronic age related small vessel ischemic changes. 3. The degree of ventricular dilatation is normal for age and/or degree of atrophy present. 4. No acute intracranial findings. Electronically signed by: Mukesh Sheth On 02/20/2021 21:28:08 PM
[2021-02-20 22:13] LABS: ALBUMIN 2.8 GM/DL (3.2-5.2); ALT/SGPT 16 U/L (12-78); BILIRUBIN,DIRECT < 0.1 MG/DL (0.0-0.2); BILIRUBIN,TOTAL 0.2 MG/DL (0.2-1.0); BLOOD UREA NITROGEN 21 MG/DL (7-18); CALCIUM LEVEL 8.7 MG/DL (8.8-10.2); CARBON DIOXIDE LEVEL 26 MEQ/L (21-32); CHLORIDE LEVEL 112 MEQ/L (98-107); CREATININE FOR GFR 0.74 MG/DL (0.55-1.30); GLOMERULAR FILTRATION RATE > 60.0 (>32); GLUCOSE, FASTING 104 MG/DL (70-100); POTASSIUM SERUM 4.4 MEQ/L (3.5-5.1); SODIUM LEVEL 143 MEQ/L (136-145); TOTAL PROTEIN 6.5 GM/DL (6.4-8.2)
[2021-02-21 00:49] VITALS: BP 161/71
== END 2021-02-21 00:51 | disposition home or self-care (01) ==
LOC: M ED 18:13
DX: F03.90 Unspecified dementia, unspecified severity, without behavioral disturbance, psychotic disturbance, mood disturbance, and anxiety (principal); E78.5 Hyperlipidemia, unspecified; M32.9 Systemic lupus erythematosus, unspecified; K21.9 Gastro-esophageal reflux disease without esophagitis; Z79.899 Other long term (current) drug therapy

== ENCOUNTER 2021-08-24 17:12 | Emergency (ER) | payer MEDICARE, OTHER ==
[~2021-08-24 17:12] MED LIST changes: -OMEP-221 PO; +OMEP40CA5 PO
[2021-08-24] MEDS ORDERED: OMEP-173 PO (18:48)
[2021-08-24] MEDS ORDERED: PRED20TA PO (18:48)
[2021-08-24] MEDS ORDERED: NUED20CA PO (18:48)
[2021-08-24] MEDS ORDERED: RISP0.5T21 PO (18:48)
[2021-08-24] MEDS ORDERED: ACET1TAB55 PO (18:48)
[2021-08-24] MEDS ORDERED: BISA10SU27 PR (18:48)
[2021-08-24] MEDS ORDERED: DEPA1TAB3 PO (18:48)
[2021-08-24] MEDS ORDERED: DEPA1CAP PO (18:48)
[2021-08-24] MEDS ORDERED: ZOLO100T PO (18:48)
[2021-08-24] MEDS ORDERED: ATOV5SUS PO (18:48)
[2021-08-24] MEDS ORDERED: FLEEENE12 PR (18:49)
[2021-08-24] MEDS ORDERED: HOME MED LIST COMPLETE! XX SCH (18:55)
[2021-08-24] MEDS ORDERED: GASTROGRAFIN SOLUTION 30ML PO SCH (19:00)
[2021-08-24 19:41] LABS: ALT/SGPT 20 U/L (12-78); BILIRUBIN,DIRECT < 0.1 MG/DL (0.0-0.2); BILIRUBIN,TOTAL 0.3 MG/DL (0.2-1.0); BLOOD UREA NITROGEN 22 MG/DL (7-18); CALCIUM LEVEL 8.3 MG/DL (8.8-10.2); CARBON DIOXIDE LEVEL 29 MEQ/L (21-32); CHLORIDE LEVEL 103 MEQ/L (98-107); CREATININE FOR GFR 0.45 MG/DL (0.55-1.30); GLOMERULAR FILTRATION RATE > 60.0 (>32); GLUCOSE, FASTING 93 MG/DL (70-100); POTASSIUM SERUM 5.9 MEQ/L (3.5-5.1); SODIUM LEVEL 136 MEQ/L (136-145); TOTAL PROTEIN 6.3 GM/DL (6.4-8.2)
[2021-08-24 19:42] LABS: LIPASE 80 U/L (73-393)
[2021-08-24 19:53] LABS: BASO % 0.3 % (0.0-1.0); HEMATOCRIT 29.6 % (36.0-47.0); HEMOGLOBIN 9.4 g/dl (12.0-15.5); LYMPH # 1.3 10^3/uL (1.5-5.0); LYMPH % 15.9 % (24.0-44.0); MEAN CORPUSCULAR HEMOGLOBIN 33.8 pg (27.0-33.0); MEAN CORPUSCULAR HGB CONC 31.8 g/dl (32.0-36.5); MEAN CORPUSCULAR VOLUME 106.5 fl (80.0-96.0); MONO # 0.3 10^3/uL (0.0-0.8); MONO % 3.9 % (2.0-8.0); NEUTROPHILS # 6.3 10^3/uL (1.5-8.5); NEUTROPHILS % 78.6 % (36.0-66.0); PLATELET COUNT, AUTOMATED 392 10^3/uL (150-450); RED BLOOD COUNT 2.78 10^6/uL (4.00-5.40)
[2021-08-24] MEDS ORDERED: ISOVUE-370 76% 100ML VIAL As Ordered ONE (20:14)
[2021-08-24] MEDS ORDERED: NS 500 ML IV ONE (20:50)
[2021-08-24] MEDS ORDERED: NS 1,000 ML IV SCH (20:50)
[2021-08-24] MEDS ORDERED: GASTROGRAFIN SOLUTION 30ML (Q9963) As Ordered ONE (21:25)
[2021-08-25 00:55] VITALS: BP 147/63
== END 2021-08-25 01:30 | disposition home or self-care (01) ==
LOC: EDBD 17:12 → M ED 17:12
DX: N82.3 Fistula of vagina to large intestine (principal); F03.90 Unspecified dementia, unspecified severity, without behavioral disturbance, psychotic disturbance, mood disturbance, and anxiety; F33.9 Major depressive disorder, recurrent, unspecified; F41.9 Anxiety disorder, unspecified; E78.5 Hyperlipidemia, unspecified; Z87.19 Personal history of other diseases of the digestive system; Z79.899 Other long term (current) drug therapy; Z79.890 Hormone replacement therapy
CPT/HCPCS: 74177; 80048; 80076; 83605; 83690; 85025; 96360; 96361; 99285; Q9963; Q9967